=== PATIENT | female | born 1950 | race Caucasian/White ===

== ENCOUNTER 2019-05-08 16:53 | Inpatient (IN) | payer MEDICARE, OTHER, SELFPAY ==
[2019-05-08] VITALS (8 sets, daily range): BP systolic 109–137; BP diastolic 48–68; PULSE 59–77; RESP 16; TEMP 36.3–37.2; O2SAT 95–98; BMI 27.8; BMI 28.8; BMI 28.0
--- NOTE | 2019-05-08 17:21 | CT_ITS ---
STUDY: CT ABDOMEN AND PELVIS WITH CONTRAST REASON FOR EXAM: Female, 68 years old. Vomiting with abdominal pain x6 days RADIATION DOSAGE (If Supplied By Facility): CTDIvol = ( 16.42 ) mGy, DLP = ( 1736.87 ) mGycm TECHNIQUE: Transaxial images were obtained from the dome of the diaphragm to the symphysis pubis with oral contrast. IV/Oral Isovue 300 100 was administered. Sagittal and coronal images were reconstructed. Individualized dose optimization techniques were used for this CT. COMPARISON: None. FINDINGS: The visualized lung bases are unremarkable. The visualized portions of the heart are within normal limits. Normal liver. There are surgical clips in the gallbladder fossa consistent with a prior cholecystectomy. Normal spleen. There is diffuse atrophy of the pancreas. Normal bilateral adrenal glands. Right-sided nephrolithiasis is noted with a stone in the central collecting system measuring 1.4 x 0.7 cm. There is mild right hydronephrosis. Severely atrophied left kidney with numerous large stones. There is a stone in the left central collecting system measuring 1.8 x 1.2 cm. Left hydronephrosis is noted. On the delayed sequence however, there appears to be appropriate contrast within the right ureter suggesting incomplete obstruction Normal visualized stomach. Normal small intestine. Normal colon. The appendix is visualized and appears normal. There is diffuse atherosclerotic calcification of the abdominal aorta, without a demonstrated aneurysm. Normal inferior vena cava. Normal retroperitoneum. Normal urinary bladder. Calcified uterine fibroid Normal abdominal wall. There are diffuse degenerative changes of the visualized lumbar spine. CT/Abdomen/Pelvis WITH Contrast IMPRESSION: Bilateral nephrolithiasis with stones in the central collecting systems and hydronephrosis; left greater than right. Severe atrophy of the left renal parenchyma. Electronically Signed: Jimbo William DO at 19:34 EDT Tel , Service support ,
--- NOTE | 2019-05-08 17:21 | EKG12_ITS ---
Test Reason : N/V Blood Pressure : / mmHG Vent. Rate : 067 BPM Atrial Rate : 067 BPM P-R Int : 174 ms QRS Dur : 086 ms QT Int : 412 ms P-R-T Axes : 057 039 037 degrees QTc Int : 435 ms Normal sinus rhythm with sinus arrhythmia Normal ECG Confirmed by TOVA VELASQUEZ, DEON ([id number]), editor continuity and script HAKEEM HEATON ([id number]) on 05/12/2019 3:30:55 PM Referred By: DEDE Confirmed By:DEON BERNARDO MD
[2019-05-08] MEDS: 0.9% Normal Saline 1,000 ML 125 ML IV (17:35)
[2019-05-08] MEDS: Ondansetron 4 MG/2 ML Vial IV (17:35)
--- NOTE | 2019-05-08 17:48 | ED.DCSUM_ITS ---
- ER Visit Summary Date of Service: 05/08/19 Chief Complaint: [Nausea and vomiting] History of Present Illness: The patient is a 68 F [presents to the emergency department with nausea and vomiting that started 6 days ago. Patient states that every time she tries to eat she throws up. Patient cannot keep anything down. Patient has had a visit to the emergency department for some of which was 4 days ago and she was seen at [facility] where she was given fluids and had a CBC per family. Patient was discharged home with antiemetics but continued to throw up. Several days ago she had a visit with her primary care physician's nurse practitioner and no further interventions were performed other than starting patient on Pepcid. Patient denies any abdominal pain. She denies any fever. She denies any diarrhea. She denies any blood in her stool or black tarry stool. She denies vomiting blood. Patient does have history of diabetes, hypertension, high cholesterol, and dementia. A lot of the history comes from the patient's sister and niece.] She has had prior cholecystectomy. Physical Examination: [HEENT-PERRLA, EOMI. Cranial nerves II through XII grossly intact. TMs clear. Mucous membranes moist. No adenopathy. Cardiovascular-regular rate and rhythm without murmur or ectopy Lungs-clear to auscultation, chest wall stable without crepitus or subcu emphysema Abdomen-normoactive bowel sounds, soft area patient has tenderness in the epigastric region with some guarding. There is no rebound, rigidity, or perineal signs. Extremities-intact ?4, normal range of motion, normal pulses, atraumatic] Test Results: [CBC with differential obtained showed a white count of 11.6, hemoglobin 16, hematocrit 48, placed 311. History showed a sodium 136, potassium 3.5, chloride 102. Glucose is 145, 122, creatinine 1.49. Urinalysis showed 100 leukocyte esterase and 5-10 WBCs as well as 0-5 RBCs. Troponin is less than 0.015. EKG shows sinus rhythm with a ventricular rate of 67 bpm with no acute ST segment changes. CT scan of the abdomen pelvis obtained with IV and p.o. contrast was read as right-sided nephrolithiasis noted with a stone in the central collecting system measuring 1.4 x 0.7 cm. There is also mild hydro-nephrosis. Patient had a severely atrophied left kidney with numerous large stones. There is a stone in the left central collecting system measuring 1.8 x 1.2 cm. Left hydronephrosis also noted.] Emergency Department Course and Treatment: [Patient was given Zofran for nausea. Patient was given normal saline.] Case was discussed with urologist who will take patient to the OR for placement of stents in the ureters. She will be discussed with hospitalist for admission. Treatment Plan: [Admit for surgical intervention.] Disposition: [Admit] Impression: [Urolithiasis Vomiting Dehydration] This note was generated with English TV dictation software. It may contain incorrect words, spelling, and punctuation that were not noted in review of the chart prior to signing ED Disposition - Plan for ED Patient: Referrals: Sofia Pitts DO [Primary Care Provider] -
[2019-05-08 18:00] LABS: Absolute Lymphocyte Count 4.04 X10^3/uL (0.83-4.51); Absolute Neutrophil Count 6.4 X10^3/uL (2.0-7.7); Basophil# 0.06 X10^3/uL; Basophil% 0.5 % (0-1); Eosinophil# 0.12 X10^3/uL; Hematocrit 48.1 % (37-47); Hemoglobin 16.1 g/dL (12.0-15.0); Lymphocyte # 4.04 X10^3/ul (4.0); Lymphocyte % 34.9 % (19-41); Mean Corp Hgb Conc 33.5 g/dL (32-36); Mean Corpuscular Volume 86.5 fL (81-99); Mean Platelet Vol. 9.9 fl (6.2-12.0); Monocyte% 7.8 % (0-10); NRBC Flagged by Analyzer 0 % (0-5); Neutrophil # 6.42 X10^3/uL (2.7-7.7); Neutrophil % 55.4 % (47-70); POSITIVE MORPHOLOGY YES; Platelet Count 311 K/mm3 (150-450); RBC Distribution Width CV 13.2 % (11.6-14.6); Red Blood Count 5.56 M/mm3 (4.2-5.4); White Blood Count 11.6 K/mm3 (4.4-11.0)
[2019-05-08 18:05] LABS: Differential Indicated SCAN CRITERIA MET
[2019-05-08 18:06] LABS: ALB/GLOB Ratio 1.1 RATIO (0.9-2.4); AST(SGOT) 16 U/L (15-37); Alanine Aminotransfer ALT/SGPT 25 U/L (13-56); Alkaline Phosphatase 81 U/L (45-117); Anion Gap 4 (5-15); BUN 22 mg/dL (7-18); BUN/Creat Ratio 14.8 RATIO (10-20); Calcium,Total 10.1 mg/dL (8.5-10.1); Chloride 102 mmol/L (98-107); Creatinine, Serum 1.49 mg/dL (0.55-1.02); EST Glomerular Filtration Rate 37 mL/min (>60); Est Glom Filt Rate - Afr Amer 45 mL/min (>60); Estimated Creatinine Clearance 31.64 ml/min; Globulin 3.5 g/dL (2.2-4.2); Glucose 145 mg/dL (74-106); Lipase 90 U/L (73-393); Potassium 3.5 mmol/L (3.5-5.1); Protein, Total 7.5 g/dL (6.4-8.2); Sodium Level 136 mmol/L (136-145)
[2019-05-08 18:26] LABS: Lactic Acid 1.3 mmol/L (0.4-2.0)
[2019-05-08 18:39] LABS: Bacteria 0 SEEN /hpf (None Seen); Mucous, Urine 0 SEEN /hpf (<or=2+)
[2019-05-08 18:41] LABS: Color, Urine Yellow (Yellow); Glucose, Dipstick Normal (Normal); Ketone-Dipstick Negative (Negative); Leukocyte Esterase-Dipstick 100 /ul (Negative); Nitrite-Dipstick Negative (Negative); Occult Blood-Urine 10 /ul (Negative); Protein-Dipstick 15 mg/dl (Negative); Specific Gravity, Urine 1.005 (1.002-1.030); Urine Bilirubin Dipstick Negative (Negative); Urine Clarity Sl. Cloudy (Clear); Urine Urobilinogen Normal (Normal)
[2019-05-08 18:42] LABS: Differential Comment SCANNED
[2019-05-08 18:43] LABS: Platelet Estimate ADEQUATE (ADEQ); Reactive Lymphocyte RARE; Red Cell Morphology NORM C+C NORMAL (NORM C&C)
[2019-05-08 18:47] LABS: Red Blood Cells-Urine 0-5 SEEN /hpf (0-5); Squamous Epithelial Cells - UA 0-5 SEEN /hpf (5-10); White Blood Cells 5-10 SEEN /hpf (0-5)
[2019-05-08 18:48] LABS: Amorphous Sediment 1+ PHOS; Renal Epithelial Cells 0-5 SEEN /hpf (0-5)
--- NOTE | 2019-05-08 20:22 | PCM.HP.STD ---
Problem List (1) Alzheimer disease Status: Acute (2) HTN (hypertension) Status: Chronic (3) HLD (hyperlipidemia) Status: Acute (4) Depression Status: Acute (5) GERD (gastroesophageal reflux disease) Status: Acute (6) Diabetes Status: Acute History of Present Illness Date of Admission: 05/08/19 Chief Complaint: Abdominal pain with nausea and vomiting The patient is a 68 year old F with PMH as below who presents to the hospital with abdominal pain and nausea and vomiting. She states that this started about 12 days ago, and it has progressively gotten worse. She had been to another hospital about 4 days ago where they did lab work and gave her fluids and sent her home. Today on this admission her creatinine was elevated to 1.45, though we do not know what her baseline is since this is her first time at this hospital. Also she had a UA that showed amorphous sediment in the 100 leukocyte esterase. She had a CT of her abdomen pelvis which demonstrated bilateral nephrolithiasis with left greater than right hydronephrosis. She was able to answer most questions appropriately, however family noted that she is in the early stages of Alzheimer's and can sometimes be very slow in her responses to questions especially when she is stressed. Past Medical History Past Medical History (Chronic Problems): Chronic Problems HTN (hypertension) (Chronic) Allergies amoxicillin [From Augmentin] Adverse Reaction (Verified 05/08/19 16:58) Hives cephalexin [From Keflex] Adverse Reaction (Verified 05/08/19 16:58) Vomiting clavulanic acid [From Augmentin] Adverse Reaction (Verified 05/08/19 16:58) Hives Penicillins Adverse Reaction (Verified 05/08/19 16:58) Vomiting shellfish derived Adverse Reaction (Verified 05/08/19 16:58) Vomiting Home Medications: Ambulatory Orders Medication Instructions Recorded Clonidine HCl [Catapres] 0.1 mg PO TID 05/08/19 Donepezil HCl 5 mg PO QHS 05/08/19 Donepezil HCl 10 mg PO QHS 05/08/19 Eplerenone 50 mg PO DAILY 05/08/19 Famotidine 20 mg PO DAILY 05/08/19 Fenofibrate [Tricor] 145 mg PO DAILY 05/08/19 Hydrochlorothiazide 50 mg PO DAILY 05/08/19 Losartan Potassium 100 mg PO DAILY 05/08/19 Metformin HCl 500 mg PO BID 05/08/19 Multivit with Iron,Minerals 1 tab PO DAILY 05/08/19 [Complete Senior] Ondansetron HCl [Zofran] 4 mg PO Q8H PRN 05/08/19 Sertraline HCl [Zoloft] 25 mg PO DAILY 05/08/19 proMETHazine tablet [Phenergan 12.5 mg PO Q6H PRN PRN 05/08/19 tablet] Surgical History: cholecystectomy Smoking Status: Never smoker Alcohol: None Drugs: None - *Family History Maternal History Items: Diabetes, Heart Disease Paternal History Items: Diabetes, Heart Disease Review of Systems Constitutional: Denies: Chills, Fever, Weight Change HEENT: Denies: Head Aches, Sinus Congestion, Sinus Drainage Cardiovascular: Denies: Chest Pain, Palpitations Respiratory: Denies: Cough, Shortness of breath at rest, Sputum production Gastrointestinal: Reports: Abdominal Pain, Nausea, Vomiting Genitourinary: Denies: Dysuria Musculoskeletal: Denies: Joint Pain, Joint Tenderness Skin: Denies: Rash, Wounds Neurological: Denies: Numbness, Tingling, Focal weakness Psychiatric: Denies: Anxiety, Depression Hematologic/ Lymphatic: Denies: Easy Bruising, Easy Bleeding VTE Information - Inpt Only VTE Present on Admission: No Patient Problems: Active and Suspected Problems Alzheimer disease (Acute) HLD (hyperlipidemia) (Acute) Depression (Acute) GERD (gastroesophageal reflux disease) (Acute) Diabetes (Acute) - Physical Exam General: Alert, Oriented x3, Cooperative, No apparent distress HEENT: Atraumatic, PERRLA, EOMI, Normocephalic Oral: Dry Mucosa Neck: Supple, No JVD Lungs: Clear to auscultation, Normal air movement, No rhonchi, No wheeze, No rales Cardiovascular: Regular rate, Regular Rhythm, Normal S1, Normal S2, No murmurs Abdomen: Soft, Non Tender, Non-Distended, No Hepato-splenomegaly, - - No CVA tenderness Extremities: No edema, Capillary Refill Less than 3 Seconds Skin: No rashes, No breakdown Neurological: Neuro grossly intact, Sensory exam intact to light touch and pain Psych/Mental Status: Normal Affect, Appropriate Vital Signs Temp Pulse Resp BP Pulse Ox 98.5 F 77 16 114/68 95 05/08/19 16:55 05/08/19 16:55 05/08/19 16:55 05/08/19 16:55 05/08/19 16:55 Oxygen Delivery Method Room Air Weight: 162 lb Body Mass Index (BMI) 27.8 Laboratory Tests Past 24 Hrs 05/08/19 05/08/19 05/08/19 17:38 17:38 17:52 WBC 11.6 H RBC 5.56 H Hgb 16.1 H Hct 48.1 H MCV 86.5 MCH 29.0 MCHC 33.5 RDW Std Deviation 41.0 RDW Coeff of Naa 13.2 Plt Count 311 MPV 9.9 Immature Gran % (Auto) 0.400 Neut % (Auto) 55.4 Lymph % (Auto) 34.9 [place] % (Auto) 7.8 Eos % (Auto) 1.0 Baso % (Auto) 0.5 Absolute Neuts (auto) 6.4 Absolute Lymphs (auto) 4.04 Nucleated RBC % 0 Differential Comment SCANNED Reactive Lymphocytes RARE Platelet Estimate ADEQUATE RBC Morphology NORM C+C Sodium 136 Potassium 3.5 Chloride 102 Carbon Dioxide 30.0 Anion Gap 4 L BUN 22 H Creatinine 1.49 H Estim Creat Clear Calc 31.64 Est GFR (MDRD) Af Amer 45 L Est GFR (MDRD) Non-Af 37 L BUN/Creatinine Ratio 14.8 Glucose 145 H Lactic Acid 1.3 Calcium 10.1 Total Bilirubin 0.80 AST 16 ALT 25 Alkaline Phosphatase 81 Troponin I < 0.015 Total Protein 7.5 Albumin 4.0 Globulin 3.5 Albumin/Globulin Ratio 1.1 Lipase 90 Urine Color Urine Clarity Urine pH Ur Specific [place] Urine Protein Urine Glucose (UA) Urine Ketones Urine Occult Blood Urine Nitrite Urine Bilirubin Urine Urobilinogen Ur Leukocyte Esterase Urine RBC Urine WBC Ur Squamous Epith Cells Ur Renal Epithelial Cell Amorphous Sediment Urine Bacteria Urine Mucus 05/08/19 18:30 WBC RBC Hgb Hct MCV MCH MCHC RDW Std Deviation RDW Coeff of Naa Plt Count MPV Immature Gran % (Auto) Neut % (Auto) Lymph % (Auto) [place] % (Auto) Eos % (Auto) Baso % (Auto) Absolute Neuts (auto) Absolute Lymphs (auto) Nucleated RBC % Differential Comment Reactive Lymphocytes Platelet Estimate RBC Morphology Sodium Potassium Chloride Carbon Dioxide Anion Gap BUN Creatinine Estim Creat Clear Calc Est GFR (MDRD) Af Amer Est GFR (MDRD) Non-Af BUN/Creatinine Ratio Glucose Lactic Acid Calcium Total Bilirubin AST ALT Alkaline Phosphatase Troponin I Total Protein Albumin Globulin Albumin/Globulin Ratio Lipase Urine Color Yellow Urine Clarity Sl. Cloudy Urine pH 7.0 Ur Specific [place] 1.005 Urine Protein 15 H Urine Glucose (UA) Normal Urine Ketones Negative Urine Occult Blood 10 H Urine Nitrite Negative Urine Bilirubin Negative Urine Urobilinogen Normal Ur Leukocyte Esterase 100 H Urine RBC 0-5 SEEN Urine WBC 5-10 SEEN Ur Squamous Epith Cells 0-5 SEEN Ur Renal Epithelial Cell 0-5 SEEN Amorphous Sediment 1+ PHOS Urine Bacteria 0 SEEN Urine Mucus 0 SEEN Assessment/Plan All Active Problems Alzheimer disease (Acute) HLD (hyperlipidemia) (Acute) Depression (Acute) GERD (gastroesophageal reflux disease) (Acute) Diabetes (Acute) 1. Bilateral nephrolithiasis with hydronephrosis and an elevated creatinine -Unsure what her baseline creatinine is, however on admission she is 1.49 -We will continue you with gentle IV hydration -Consult to urology, she was taken to the OR this evening for bilateral stent placement, a right ureteral stent was able to be placed however she has a left atrophic kidney and a stent was unable to be placed into the left ureter and the stone was left alone. 2. DM 2 -We will hold her metformin and start a sliding scale insulin -Accu-Cheks AC at bedtime 3. Alzheimer's dementia and depression -Continue with her Aricept dosing -Depression is stable -continue with Zoloft 4. HTN/HLD -Blood pressures appear to be stable -Continue with her home blood pressure medications and her fenofibrate 5. GERD -Stable -Continue with Pepcid DVT: Lovenox Code Visit Inpatient E&M: 92402 Init Hosp L3
--- NOTE | 2019-05-08 20:29 | CON.PCM_ITS ---
Reason for Consult Date of Consultation: 05/08/19 Reason for Consultation: Bilateral kidney stones bilateral ureteral obstruction nausea vomiting History of Present Illness: The patient is a 68 year old female who presented to the emergency room for a second time she was in outside emergency room initially for 4 days of persistent nausea vomiting lab work today demonstrated elevated creatinine CAT scan was done demonstrated atrophic kidney on one side obstructing stone and a another stone blocking the other kidney with bilateral obstruction elevated creatinine she is failed conservative management persistent nausea and vomiting. She is can be admitted for the nausea vomiting, plan to taken to surgery this evening for cystoscopy and bilateral stents to alleviate the obstruction. Past Medical History Allergies amoxicillin [From Augmentin] Adverse Reaction (Verified 05/08/19 16:58) Hives cephalexin [From Keflex] Adverse Reaction (Verified 05/08/19 16:58) Vomiting clavulanic acid [From Augmentin] Adverse Reaction (Verified 05/08/19 16:58) Hives Penicillins Adverse Reaction (Verified 05/08/19 16:58) Vomiting shellfish derived Adverse Reaction (Verified 05/08/19 16:58) Vomiting Home Medications: Ambulatory Orders Medication Instructions Recorded Clonidine HCl [Catapres] 0.1 mg PO TID 05/08/19 Donepezil HCl 5 mg PO QHS 05/08/19 Donepezil HCl 10 mg PO QHS 05/08/19 Eplerenone 50 mg PO DAILY 05/08/19 Famotidine 20 mg PO DAILY 05/08/19 Fenofibrate [Tricor] 145 mg PO DAILY 05/08/19 Hydrochlorothiazide 50 mg PO DAILY 05/08/19 Losartan Potassium 100 mg PO DAILY 05/08/19 Metformin HCl 500 mg PO BID 05/08/19 Multivit with Iron,Minerals 1 tab PO DAILY 05/08/19 [Complete Senior] Ondansetron HCl [Zofran] 4 mg PO Q8H PRN 05/08/19 Sertraline HCl [Zoloft] 25 mg PO DAILY 05/08/19 proMETHazine tablet [Phenergan 12.5 mg PO Q6H PRN PRN 05/08/19 tablet] 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: No pertinent HAND BOOKBINDER history Lives: With Family Smoking Status: Never smoker Tobacco Use: Non-smoker Alcohol: None Drugs: None Review of Systems Constitutional: Reports: Anorexia Gastrointestinal: Reports: Nausea, Vomiting Genitourinary: Denies: Dysuria Musculoskeletal: Denies: Joint Pain, Joint Tenderness Skin: Denies: Rash, Wounds Neurological: Denies: Numbness, Tingling, Focal weakness Psychiatric: Denies: Anxiety, Depression, Homicidal Ideations, Suicidal Ideations Hematologic/ Lymphatic: Denies: Easy Bruising, Easy Bleeding Physical Exam - Physical Exam Vital Signs Temp 98.5 F 05/08/19 16:55 Pulse 77 05/08/19 16:55 Resp 16 05/08/19 16:55 BP 114/68 05/08/19 16:55 Pulse Ox 95 05/08/19 16:55 Intake & Output 05/06/19 05/07/19 05/08/19 23:59 23:59 23:59 Weight: 73.482 kg General: Alert HEENT: Atraumatic Oral: Moist Mucosa Neck: Supple Lungs: Normal air movement Cardiovascular: Regular rate Abdomen: Soft Rectal: Exam deferred Groin: No hernia Extremities: No clubbing, No cyanosis, No edema Laboratory Tests Past 24 Hrs 05/08/19 05/08/19 05/08/19 17:38 17:38 17:52 WBC 11.6 H RBC 5.56 H Hgb 16.1 H Hct 48.1 H MCV 86.5 MCH 29.0 MCHC 33.5 RDW Std Deviation 41.0 RDW Coeff of Naa 13.2 Plt Count 311 MPV 9.9 Immature Gran % (Auto) 0.400 Neut % (Auto) 55.4 Lymph % (Auto) 34.9 [place] % (Auto) 7.8 Eos % (Auto) 1.0 Baso % (Auto) 0.5 Absolute Neuts (auto) 6.4 Absolute Lymphs (auto) 4.04 Nucleated RBC % 0 Differential Comment SCANNED Reactive Lymphocytes RARE Platelet Estimate ADEQUATE RBC Morphology NORM C+C Sodium 136 Potassium 3.5 Chloride 102 Carbon Dioxide 30.0 Anion Gap 4 L BUN 22 H Creatinine 1.49 H Estim Creat Clear Calc 31.64 Est GFR (MDRD) Af Amer 45 L Est GFR (MDRD) Non-Af 37 L BUN/Creatinine Ratio 14.8 Glucose 145 H Lactic Acid 1.3 Calcium 10.1 Total Bilirubin 0.80 AST 16 ALT 25 Alkaline Phosphatase 81 Troponin I < 0.015 Total Protein 7.5 Albumin 4.0 Globulin 3.5 Albumin/Globulin Ratio 1.1 Lipase 90 Urine Color Urine Clarity Urine pH Ur Specific [place] Urine Protein Urine Glucose (UA) Urine Ketones Urine Occult Blood Urine Nitrite Urine Bilirubin Urine Urobilinogen Ur Leukocyte Esterase Urine RBC Urine WBC Ur Squamous Epith Cells Ur Renal Epithelial Cell Amorphous Sediment Urine Bacteria Urine Mucus 05/08/19 18:30 WBC RBC Hgb Hct MCV MCH MCHC RDW Std Deviation RDW Coeff of Naa Plt Count MPV Immature Gran % (Auto) Neut % (Auto) Lymph % (Auto) [place] % (Auto) Eos % (Auto) Baso % (Auto) Absolute Neuts (auto) Absolute Lymphs (auto) Nucleated RBC % Differential Comment Reactive Lymphocytes Platelet Estimate RBC Morphology Sodium Potassium Chloride Carbon Dioxide Anion Gap BUN Creatinine Estim Creat Clear Calc Est GFR (MDRD) Af Amer Est GFR (MDRD) Non-Af BUN/Creatinine Ratio Glucose Lactic Acid Calcium Total Bilirubin AST ALT Alkaline Phosphatase Troponin I Total Protein Albumin Globulin Albumin/Globulin Ratio Lipase Urine Color Yellow Urine Clarity Sl. Cloudy Urine pH 7.0 Ur Specific [place] 1.005 Urine Protein 15 H Urine Glucose (UA) Normal Urine Ketones Negative Urine Occult Blood 10 H Urine Nitrite Negative Urine Bilirubin Negative Urine Urobilinogen Normal Ur Leukocyte Esterase 100 H Urine RBC 0-5 SEEN Urine WBC 5-10 SEEN Ur Squamous Epith Cells 0-5 SEEN Ur Renal Epithelial Cell 0-5 SEEN Amorphous Sediment 1+ PHOS Urine Bacteria 0 SEEN Urine Mucus 0 SEEN Assessment/Plan 68-year-old female with bilateral ureteral obstruction she is n.p.o. for surgery plan to take her immediately for cystoscopy left retrograde pyelogram and stent placement and right retrograde pyelogram and stent placement she will then be admitted to the hospital
[2019-05-08] MEDS: Ciprofloxacin 200 MG/100 ML BAG 100 MG IV (20:52)
[2019-05-08] MEDS: Lidocaine Jelly 2% 20 ML Syringe (URO-JET) 20 APPLIC (21:18)
--- NOTE | 2019-05-08 21:29 | PCM.OPRPT ---
Report of Operation Date of Procedure: 05/08/19 Pre-Operative Diagnosis: Bilateral ureteral obstruction from large renal calculi, left atrophic kidney poorly functioning. Normal right kidney with obstruction Post-Operative Diagnosis: The same atrophic chronically obstructed left kidney, right kidney with obstruction renal calculi Surgery/Procedure Performed:: Cystoscopy, right retrograde pyelogram, interpretation fluoroscopic images, and right stent placement, left retrograde pyelogram attempted stent placement no stent placed on left side. Description of Surgical Findings:: 68-year-old female with dementia presents to the hospital with 4 days of nausea vomiting not feeling well CAT scan was done and demonstrated a normal kidney on the right side with obstruction from the stone and hydronephrosis. 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 Presented with obstruction and will take her to surgery today for stent placement in an emergent fashion from the ER 68-year-old female taken back to the operating room at the smooth induction of MAC local by Dr. Palencia from anesthesia she was placed in dorsolithotomy position. The urethra and vaginal area were prepped and draped in usual sterile fashion, went into the bladder with a 21 [place] rigid cystourethroscope identified the left and right ureter orifice and the trigone I think cannulated the right ureteral orifice with a Glidewire performed a retrograde pyelogram see contrast up in the kidney the stone appeared to be radiolucent, I then advanced a wire past the stone up into the kidney and then over the wire I advanced a stent it was 6 6 [place] by 26 cm stent once in good position pulled the stent the stent coiled in the kidney bladder good position and was draining the right kidney well. I then went to the left side cannulated the left ureteral orifice advanced a wire up in the left side contrast was then injected up in the left side no contrast to go past the stone there was a large stone at the UPJ junction junction causing complete obstruction tried multiple times to get the wire past the stone but was not able to get the wire past the stone. Therefore I aborted and did not place a stent to the left side. Left kidney is atrophic and poorly functioning will leave the stones alone in the left side and not treat him and will treat her stones in the right kidney that causing obstruction of the healthy kidney. Anesthesia was reversed she is taken back to PACU in good condition she is can be admitted to the hospital. Type of Anesthesia:: Local MAC Drains: stent on right - Admit VTE Documentation VTE Present on Admission: No VTE Mechan Device Prophylaxis: SCD's
[2019-05-08 23:00] LABS: Bedside Glucose 111 mg/dL (70-110)
[2019-05-08] MEDS: 0.9% Normal Saline 1,000 ML 100 ML IV (23:05)
--- NOTE | 2019-05-09 00:15 | NURSING ---
Up to bathroom with SBA, urine pink, no stones noted
[2019-05-09] MEDS: Ondansetron 4 MG/2 ML Vial IV (03:07)
[2019-05-09] MEDS: Ketorolac 15 MG/ML Vial IV (03:37)
[2019-05-09 05:15] VITALS: BP 139/56; PULSE 69; RESP 18; TEMP 36.7; O2SAT 95
[2019-05-09] MEDS: cloNIDine HCl 0.1 MG Tablet PO ×3 (06:05→22:18)
[2019-05-09 06:41] LABS: Absolute Lymphocyte Count 3.05 X10^3/uL (0.83-4.51); Absolute Neutrophil Count 7.3 X10^3/uL (2.0-7.7); Basophil# 0.05 X10^3/uL; Basophil% 0.4 % (0-1); Eosinophil# 0.17 X10^3/uL; Eosinophils% 1.5 % (0-5); Hematocrit 43.2 % (37-47); Hemoglobin 14.7 g/dL (12.0-15.0); Lymphocyte # 3.05 X10^3/ul (4.0); Lymphocyte % 26.2 % (19-41); Mean Corpuscular Hgb 29.3 pg (27.0-32.0); Mean Corpuscular Volume 86.1 fL (81-99); Mean Platelet Vol. 9.6 fl (6.2-12.0); Monocyte# 0.98 X10^3/uL; Monocyte% 8.4 % (0-10); NRBC Flagged by Analyzer 0 % (0-5); Neutrophil # 7.34 X10^3/uL (2.7-7.7); Neutrophil % 63.2 % (47-70); Platelet Count 254 K/mm3 (150-450); RBC Distribution Width CV 13.2 % (11.6-14.6); RBC Distribution Width SD 40.8 fl (35.1-43.9); Red Blood Count 5.02 M/mm3 (4.2-5.4); White Blood Count 11.6 K/mm3 (4.4-11.0)
[2019-05-09 06:55] LABS: Anion Gap 6 (5-15); BUN 19 mg/dL (7-18); BUN/Creat Ratio 14.5 RATIO (10-20); Calcium,Total 9.2 mg/dL (8.5-10.1); Chloride 106 mmol/L (98-107); Creatinine, Serum 1.31 mg/dL (0.55-1.02); EST Glomerular Filtration Rate 43 mL/min (>60); Est Glom Filt Rate - Afr Amer 52 mL/min (>60); Estimated Creatinine Clearance 35.99 ml/min; Glucose 113 mg/dL (74-106); Potassium 3.1 mmol/L (3.5-5.1); Sodium Level 139 mmol/L (136-145)
[2019-05-09 06:56] LABS: Bedside Glucose 120 mg/dL (70-110)
[2019-05-09 09:19] VITALS: BP 145/61; PULSE 62; RESP 14; TEMP 36.5; O2SAT 96
[2019-05-09] MEDS: 0.9% Normal Saline 1,000 ML 100 ML IV ×2 (10:14→20:15)
[2019-05-09] MEDS: Ciprofloxacin 500 MG Tablet PO ×2 (10:37→22:18)
[2019-05-09] MEDS: Losartan Potassium 100 MG Tablet PO (10:38)
[2019-05-09] MEDS: hydroCHLOROthiazide 25 MG Tablet 50 MG PO (10:39)
[2019-05-09] MEDS: Enoxaparin 40 MG/0.4 ML Syringe SC (10:40)
[2019-05-09] MEDS: Famotidine 20 MG Tablet PO (10:41)
[2019-05-09] MEDS: Fenofibrate 48 MG Tablet PO (10:42)
[2019-05-09] MEDS: Sertraline 50 MG Tablet 25 MG PO (10:43)
[2019-05-09 11:46] LABS: Bedside Glucose 103 mg/dL (70-110)
[2019-05-09 13:21] VITALS: BP 150/50; PULSE 65; RESP 18; TEMP 36.6; O2SAT 98
[2019-05-09] MEDS: Eplerenone 25 MG Tablet 50 MG PO (13:25)
--- NOTE | 2019-05-09 14:00 | CASEMGMT ---
RN CM Face to Face with patient for initial transition planning/care coordination assessment. RN CM introduced self and role at [facility]. Patient lying in bed, alert and oriented, sister at bedside. Patient willing to participate in assessment and is able to answer most questions appropriately, has early Alzheimer's and is dependent on sister to answer some questions. Care providers, pharmacy, and demographics verified. Patient wishes to discharge home, denies need for home health at this time. Patient states she has no further needs or concerns at this time. CM to follow for discharge planning needs that may arise. PCP: Gisselle Specialists: Jacob; Alzheimer specialist Preferred [facility]acy: [facility] Insurance: [facility] Prescription Benefit: yes Living Will/HPOA: none, would like to complete while here, DEREK Reis updated LNOK: sister, niece Living Arrangements: Patient lives with sister and niece in 2 story home with bed and bath on first floor. Patient independent at home. Transportation: sister DME/HHC: Patient states she has shower chair at home. Family ordering rollator for patient. Disposition Plan: Patient to discharge home with family support and follow-up plans in place. Yee REGALADO, RN, CM
--- NOTE | 2019-05-09 14:36 | CASEMGMT ---
Social Work Note RN ANJANA Sim updated this worker that pt would like to complete advanced directives. SW met with pt, pt's sister Marcie and pt's niece present in room. Pt gave this worker permission to speak to her in front of her guest and complete advanced directives in front of her guest. Pt completed advanced directives. Copy of advanced directives on pt's chart and original given to pt. Pt's niece Charito requesting 3 copies. SW provided Charito with three copies. Yee Reis EDGERMAN, ORNAMENTAL METAL FABRICATOR APPRENTICE
--- NOTE | 2019-05-09 15:22 | PCM.PN.BLA ---
Progress Note 68 yo female with essentially solitary right kidney s/p stent on right urine bloody will stop all blood thinners left kidney with no function scds
[2019-05-09 17:41] VITALS: BP 156/68; PULSE 66; RESP 18; TEMP 36.1; O2SAT 96
[2019-05-09] MEDS: Insulin Lispro 100 UNIT/ML INSULN.PEN SC ×2 (17:49→22:20)
[2019-05-09 17:51] LABS: Bedside Glucose 202 mg/dL (70-110)
--- NOTE | 2019-05-09 18:11 | PN_ITS ---
Subjective: Patient was seen and examined today, she is having gross hematuria today, I talked briefly with urology concerning it, urology stated that the hematuria is probably coming from the stent placement and recommended to continue observation. I placed the patient on oral antibiotics this morning due to her instrumentation and risk of urinary tract infection. - Physical Exam General: Alert, Cooperative, No apparent distress, Well developed HEENT: Atraumatic, PERRLA, EOMI, Normocephalic Oral: Moist Mucosa Neck: Supple, Trachea Midline, Thyroid Normal Size and Texture Lungs: Clear to auscultation, Normal air movement, No rhonchi, No wheeze Cardiovascular: Regular rate, Regular Rhythm, Normal S1, Normal S2, No murmurs Abdomen: Bowel Sounds Present, Soft, Non Tender, Non-Distended Extremities: No clubbing, No cyanosis, No edema, Capillary Refill Less than 3 Seconds Skin: No rashes, No breakdown Musculoskeletal: No Tenderness to Palpation of Joints or Extremities Neurological: Cranial nerves II-XII grossly intact, Neuro grossly intact, Sensory exam intact to light touch and pain Psych/Mental Status: Normal Affect, Appropriate Vital Signs Temp Pulse Resp BP Pulse Ox 97 F L 66 18 156/68 H 96 05/09/19 17:41 05/09/19 17:41 05/09/19 17:41 05/09/19 17:41 05/09/19 17:41 Oxygen Delivery Method Room Air Weight: 74.1 kg Body Mass Index (BMI) 28.0 Intake and Output for Last 24 Hours 05/07/19 05/08/19 05/09/19 23:59 23:59 23:59 Intake Total 787.5 / 787.5 2150 / 2150 Output Total 1400 / 1400 Balance 787.5 / 587.5 750 / 750 Laboratory Tests Past 24 Hrs 05/08/19 05/08/19 05/08/19 17:38 17:52 18:30 WBC RBC Hgb Hct MCV MCH MCHC RDW Std Deviation RDW Coeff of Naa Plt Count MPV Immature Gran % (Auto) Neut % (Auto) Lymph % (Auto) [place] % (Auto) Eos % (Auto) Baso % (Auto) Absolute Neuts (auto) Absolute Lymphs (auto) Nucleated RBC % Differential Comment SCANNED Reactive Lymphocytes RARE Platelet Estimate ADEQUATE RBC Morphology NORM C+C Sodium Potassium Chloride Carbon Dioxide Anion Gap BUN Creatinine Estim Creat Clear Calc Est GFR (MDRD) Af Amer Est GFR (MDRD) Non-Af BUN/Creatinine Ratio Glucose Lactic Acid 1.3 Calcium Urine Color Yellow Urine Clarity Sl. Cloudy Urine pH 7.0 Ur Specific [place] 1.005 Urine Protein 15 H Urine Glucose (UA) Normal Urine Ketones Negative Urine Occult Blood 10 H Urine Nitrite Negative Urine Bilirubin Negative Urine Urobilinogen Normal Ur Leukocyte Esterase 100 H Urine RBC 0-5 SEEN Urine WBC 5-10 SEEN Ur Squamous Epith Cells 0-5 SEEN Ur Renal Epithelial Cell 0-5 SEEN Amorphous Sediment 1+ PHOS Urine Bacteria 0 SEEN Urine Mucus 0 SEEN 05/09/19 05/09/19 06:28 06:28 WBC 11.6 H RBC 5.02 Hgb 14.7 Hct 43.2 MCV 86.1 MCH 29.3 MCHC 34.0 RDW Std Deviation 40.8 RDW Coeff of Naa 13.2 Plt Count 254 MPV 9.6 Immature Gran % (Auto) 0.300 Neut % (Auto) 63.2 Lymph % (Auto) 26.2 [place] % (Auto) 8.4 Eos % (Auto) 1.5 Baso % (Auto) 0.4 Absolute Neuts (auto) 7.3 Absolute Lymphs (auto) 3.05 Nucleated RBC % 0 Differential Comment Reactive Lymphocytes Platelet Estimate RBC Morphology Sodium 139 Potassium 3.1 L Chloride 106 Carbon Dioxide 27.0 Anion Gap 6 BUN 19 H Creatinine 1.31 H Estim Creat Clear Calc 35.99 Est GFR (MDRD) Af Amer 52 L Est GFR (MDRD) Non-Af 43 L BUN/Creatinine Ratio 14.5 Glucose 113 H Lactic Acid Calcium 9.2 Urine Color Urine Clarity Urine pH Ur Specific [place] Urine Protein Urine Glucose (UA) Urine Ketones Urine Occult Blood Urine Nitrite Urine Bilirubin Urine Urobilinogen Ur Leukocyte Esterase Urine RBC Urine WBC Ur Squamous Epith Cells Ur Renal Epithelial Cell Amorphous Sediment Urine Bacteria Urine Mucus POC Glucose 05/09/19 05/09/19 05/09/19 17:45 11:39 06:51 POC Glucose 202 H 103 120 H 05/08/19 22:51 POC Glucose 111 H Medical Necessity - Tobacco Use Smoking Status: Current every day smoker Tobacco Use: Non-smoker Assessment/Plan #1 bilateral ureteral obstruction from a large renal calculi-status post op day #1 cystoscopy with right retrograde pyelogram, right stent placement, left retrograde pyelogram and attempted left stent placement (failed)-urology is participating in her care #2 hematuria-secondary to #1, continue to monitor patient, CBC in the morning #3 essential hypertension #4 Alzheimer's dementia #5 hyperlipidemia #6 type 2 diabetes continue to monitor blood sugars #7 probable stage III chronic kidney disease-etiology unclear #8 hypokalemia-patient was given oral potassium supplementation, recheck labs tomorrow, I will decrease the patient's hydrochlorothiazide to 25 mg daily Code Visit Inpatient E&M: 47149 Subs Hosp L2
[2019-05-09 22:13] VITALS: BP 142/71; PULSE 69; RESP 16; TEMP 36.6; O2SAT 99
[2019-05-09] MEDS: Donepezil HCl 5 MG Tablet PO (22:19)
[2019-05-09] MEDS: Donepezil HCl 10 MG Tablet PO (22:19)
[2019-05-09 22:35] LABS: Bedside Glucose 152 mg/dL (70-110)
[2019-05-10 02:05] VITALS: BP 155/64; PULSE 68; RESP 16; TEMP 36.9; O2SAT 96
[2019-05-10] MEDS: 0.9% NaCl Peripheral Flush Adult/Peds IV (02:11)
[2019-05-10] MEDS: Ondansetron 4 MG/2 ML Vial IV (02:11)
[2019-05-10 02:25] LABS: Bedside Glucose 119 mg/dL (70-110)
[2019-05-10] MEDS: cloNIDine HCl 0.1 MG Tablet PO (06:35)
[2019-05-10] MEDS: 0.9% Normal Saline 1,000 ML 100 ML IV (06:35)
[2019-05-10 06:40] LABS: Bedside Glucose 103 mg/dL (70-110)
[2019-05-10 08:00] LABS: Anion Gap 6 (5-15); BUN 22 mg/dL (7-18); BUN/Creat Ratio 16.1 RATIO (10-20); Chloride 111 mmol/L (98-107); Creatinine, Serum 1.37 mg/dL (0.55-1.02); EST Glomerular Filtration Rate 41 mL/min (>60); Est Glom Filt Rate - Afr Amer 49 mL/min (>60); Estimated Creatinine Clearance 34.41 ml/min; Glucose 129 mg/dL (74-106); Potassium 3.6 mmol/L (3.5-5.1); Sodium Level 145 mmol/L (136-145)
[2019-05-10 08:05] VITALS: BP 138/68; PULSE 67; RESP 16; TEMP 36.5; O2SAT 96
--- NOTE | 2019-05-10 09:38 | PCM.PN.BLA ---
Progress Note 68-year-old female status post stent placement on the right side for obstructing stone and essentially a solitary right kidney, left kidney is atrophic chronically obstructed nonfunctioning. Urine was fairly bloody yesterday but today is clearing up a lot more. I held her Lovenox. 68-year-old female status post stent placement creatinine is stable urine output is decent, urine is clearing certainly I think she can be discharged home once medically stable and she can follow-up in my office to discuss options of treatment for her kidney stones.
[2019-05-10 10:00] VITALS: RESP 18
[2019-05-10] MEDS: Famotidine 20 MG Tablet PO (10:52)
[2019-05-10] MEDS: Losartan Potassium 100 MG Tablet PO (10:52)
[2019-05-10] MEDS: hydroCHLOROthiazide 25 MG Tablet PO (10:52)
[2019-05-10] MEDS: Ciprofloxacin 500 MG Tablet PO (10:52)
[2019-05-10] MEDS: Eplerenone 25 MG Tablet 50 MG PO (10:52)
[2019-05-10] MEDS: Sertraline 50 MG Tablet 25 MG PO (10:53)
[2019-05-10] MEDS: Fenofibrate 48 MG Tablet PO (10:54)
[2019-05-10 12:11] LABS: Bedside Glucose 113 mg/dL (70-110)
--- NOTE | 2019-05-10 12:57 | PCM.DC ---
- Discharge Diagnoses Current Active Problems: Current Active and Chronic Problems Alzheimer disease (Chronic) HTN (hypertension) (Chronic) HLD (hyperlipidemia) (Chronic) Depression (Chronic) GERD (gastroesophageal reflux disease) (Chronic) Diabetes (Chronic) You will use the following diet at home:: Calorie/Carbohydrate Controlled (specify 1200, 1400, etc) - no added sugar Your food should be the consistency of: Regular Your liquids should be the consistency of: Regular/Thin Discharge Activity: Return to Normal Activity Weight Bearing Status: Full weight bearing Allergies/Adverse Reactions: Allergies amoxicillin [From Augmentin] Adverse Reaction (Verified 05/08/19 16:58) Hives cephalexin [From Keflex] Adverse Reaction (Verified 05/08/19 16:58) Vomiting clavulanic acid [From Augmentin] Adverse Reaction (Verified 05/08/19 16:58) Hives Penicillins Adverse Reaction (Verified 05/08/19 16:58) Vomiting shellfish derived Adverse Reaction (Verified 05/08/19 16:58) Vomiting Medications to take at Discharge Clonidine HCl [Catapres] 0.1 mg PO TID 05/08/19 Donepezil HCl 10 mg PO QHS 05/08/19 Eplerenone 50 mg PO DAILY 05/08/19 Famotidine 20 mg PO DAILY 05/08/19 Fenofibrate [Tricor] 145 mg PO DAILY 05/08/19 Losartan Potassium 100 mg PO DAILY 05/08/19 Metformin HCl 500 mg PO BID 05/08/19 Multivit with Iron,Minerals [Complete Senior] 1 tab PO DAILY 05/08/19 Ondansetron HCl [Zofran] 4 mg PO Q8H PRN 05/08/19 Sertraline HCl [Zoloft] 25 mg PO DAILY 05/08/19 proMETHazine tablet [Phenergan tablet] 12.5 mg PO Q6H PRN PRN 05/08/19 Ciprofloxacin [Cipro] 500 mg PO BID #10 tab 05/10/19 Hydrochlorothiazide [Hctz] 25 mg PO DAILY #30 tab 05/10/19 The following prescriptions were given: Ciprofloxacin [Cipro] 500 mg PO BID #10 tab Transmission Status: Pending to [facility] #[facility] Hydrochlorothiazide [Hctz] 25 mg PO DAILY #30 tab Transmission Status: Pending to [facility] #[facility] Primary Care Physician: Sofia Pitts DO [Primary Care Provider] - Please follow up with your Primary Care Physician in: in 2 weeks Test Results: Test results from this visit will be discussed in further detail at your follow-up appointment, if applicable. Please Follow Up With: Erik Ramirez MD When: in one week
[2019-05-10 14:00] VITALS: BP 150/62; PULSE 72; RESP 18; TEMP 36.9; O2SAT 98
--- NOTE | 2019-05-10 18:04 | PCM.PROGNOTE ---
Subjective: Patient was seen and examined today, urology has released the patient if she is medically stable which I believe she is at this time. I have adjusted the patient's blood pressure medications due to her hypokalemia. I have also readjusted her Alzheimer's medication-she had been taking a total of 15 mg daily of Aricept which is too high of a dose. Patient voices no complaints to this examiner today, she remains pleasantly confused. - Physical Exam General: Alert, Cooperative, No apparent distress, Well developed, Confused HEENT: Atraumatic, PERRLA, EOMI, Normocephalic Oral: Moist Mucosa Neck: Supple, Trachea Midline, Thyroid Normal Size and Texture Lungs: Clear to auscultation, Normal air movement, No rhonchi, No wheeze Cardiovascular: Regular rate, Regular Rhythm, Normal S1, Normal S2, No murmurs, No Ectopic Activity, PMI Normal, No rub noted, No Gallop Abdomen: Bowel Sounds Present, Soft, Non Tender, Non-Distended, No hernias noted Extremities: No clubbing, No cyanosis, No edema, Capillary Refill Less than 3 Seconds Skin: No rashes, No breakdown Musculoskeletal: No Tenderness to Palpation of Joints or Extremities Neurological: Cranial nerves II-XII grossly intact, Neuro grossly intact, Sensory exam intact to light touch and pain Psych/Mental Status: - - Patient is alert, she has mild to moderate confusion but responds to simple questions concerning her well-being appropriately. She is not oriented as to time or place however. Vital Signs Temp Pulse Resp BP Pulse Ox 98.5 F 72 18 150/62 H 98 05/10/19 14:00 05/10/19 14:00 05/10/19 14:00 05/10/19 14:00 05/10/19 14:00 Oxygen Delivery Method Room Air Weight: 74.1 kg Body Mass Index (BMI) 28.0 Intake and Output for Last 24 Hours 05/08/19 05/09/19 05/10/19 23:59 23:59 23:59 Intake Total 787.5 / 787.5 3150 / 3450 3191.67 / 3191.67 Output Total 1400 / 1825 725 / 725 Balance 787.5 / 587.5 1750 / 1625 2466.67 / 2466.67 Laboratory Tests Past 24 Hrs 05/10/19 06:50 Sodium 145 Potassium 3.6 Chloride 111 H Carbon Dioxide 28.0 Anion Gap 6 BUN 22 H Creatinine 1.37 H Estim Creat Clear Calc 34.41 Est GFR (MDRD) Af Amer 49 L Est GFR (MDRD) Non-Af 41 L BUN/Creatinine Ratio 16.1 Glucose 129 H Calcium 9.0 POC Glucose 05/10/19 05/10/19 05/10/19 11:55 06:33 02:02 POC Glucose 113 H 103 119 H 05/09/19 22:10 POC Glucose 152 H Medical Necessity - Tobacco Use Smoking Status: Current every day smoker Tobacco Use: Non-smoker Assessment/Plan #1 bilateral ureteral obstruction from a large renal calculi-status post op day #2 cystoscopy with right retrograde pyelogram, right stent placement, left retrograde pyelogram and attempted left stent placement (failed)-urology is participating in her care #2 hematuria-secondary to #1-resolved at this time #3 essential hypertension #4 Alzheimer's dementia #5 hyperlipidemia #6 type 2 diabetes continue to monitor blood sugars #7 probable stage III chronic kidney disease-etiology unclear #8 hypokalemia
--- NOTE | 2019-05-10 18:07 | DS.PCM_ITS ---
Discharge Date and Diagnosis Date of Admission: 05/08/19 Date of Discharge: 05/10/19 - Primary Discharge Diagnosis #1 bilateral ureteral obstruction from right ureteral stone and presence of bilateral kidney stones #2 hematuria-secondary to ureteral stent placement #3 essential hypertension #4 Alzheimer's dementia #5 hyperlipidemia #6 type 2 diabetes #7 probable stage III chronic kidney disease-etiology unclear #8 hypokalemia-secondary to diuretic usage #9 nausea and vomiting secondary to ureteral obstruction - Secondary Discharge Diagnosis Chronic Problems Alzheimer disease (Chronic) HTN (hypertension) (Chronic) HLD (hyperlipidemia) (Chronic) Depression (Chronic) GERD (gastroesophageal reflux disease) (Chronic) Diabetes (Chronic) Hospital Course and Treatment Operations: - - Cystoscopy, right retrograde pyelogram, right stent placement, left retrograde pyelogram, attempted left ureteral stent placement which was unsuccessful-05/08/2019 Procedures: None Summary of Care Provided: The patient is a 68 year old F who was seen in the emergency room at [facility] with chief complaint of nausea and vomiting, work-up in the emergency room revealed white blood cell count of 11.6, potassium was 3.5, creatinine was 1.49. Urinalysis showed 100 leukocyte esterase and 5-10 WBCs and 0-[address] scan of the abdomen and pelvis was obtained with IV and p.o. contrast there was noted to be a right sided nephro lithiasis with a stone in the central collecting system, there is noted to be severely atrophied left kidney with numerous large stones, there was also noted to be a stone in the left central collecting system and left hydronephrosis. Patient was given Zofran for nausea, urology was contacted and requested hospitalist service to admit the patient, patient was admitted to the hospitalist service, she underwent cystoscopy and retrograde pyelogram by urology-urology was unable to put a stent in the left ureter due to the size of the stone in the left ureter. It was felt that the patient's left kidney was atrophied and had very little function and so no further treatment was attempted. There was a stent put in the right ureter. Patient was given supplemental potassium due to her low potassium, her blood pressure medication was adjusted due to the fact she was on 2 different diuretics. Patient had no complications during her hospital stay. On 05/10/2019, patient was seen and examined: On examination she appeared in good health and spirits. Vital signs as documented. Skin warm and dry and without overt rashes. Neck without JVD. Lungs clear. Heart exam notable for regular rhythm, normal sounds and absence of murmurs, rubs or gallops. Abdomen unremarkable and without evidence of organomegaly, masses, or abdominal aortic enlargement. Extremities nonedematous. Neuro: Cranial nerves II through XII are grossly intact, no focal motor deficits were noted, sensation to light touch and pinprick is intact. Psych: Patient is alert, she is oriented as to person but not place or time. On 05/10/2019, patient was seen and examined and felt to be stable condition for discharge home - Physical Exam Vital Signs Temp Pulse Resp BP Pulse Ox 98.5 F 72 18 150/62 H 98 05/10/19 14:00 05/10/19 14:00 05/10/19 14:00 05/10/19 14:00 05/10/19 14:00 Oxygen Delivery Method Room Air Weight: 74.1 kg Body Mass Index (BMI) 28.0 Intake and Output for Last 24 Hours 05/08/19 05/09/19 05/10/19 23:59 23:59 23:59 Intake Total 787.5 / 787.5 3150 / 3450 3191.67 / 3191.67 Output Total 1400 / 1825 725 / 725 Balance 787.5 / 587.5 1750 / 1625 2466.67 / 2466.67 Laboratory Tests Past 24 Hrs 05/10/19 06:50 Sodium 145 Potassium 3.6 Chloride 111 H Carbon Dioxide 28.0 Anion Gap 6 BUN 22 H Creatinine 1.37 H Estim Creat Clear Calc 34.41 Est GFR (MDRD) Af Amer 49 L Est GFR (MDRD) Non-Af 41 L BUN/Creatinine Ratio 16.1 Glucose 129 H Calcium 9.0 POC Glucose 05/10/19 05/10/19 05/10/19 11:55 06:33 02:02 POC Glucose 113 H 103 119 H 05/09/19 22:10 POC Glucose 152 H Discharge Activity: Return to Normal Activity Weight Bearing Status: Full weight bearing Home Medications: Medications to take at Discharge Clonidine HCl [Catapres] 0.1 mg PO TID 05/08/19 Donepezil HCl 10 mg PO QHS 05/08/19 Eplerenone 50 mg PO DAILY 05/08/19 Famotidine 20 mg PO DAILY 05/08/19 Fenofibrate [Tricor] 145 mg PO DAILY 05/08/19 Losartan Potassium 100 mg PO DAILY 05/08/19 Metformin HCl 500 mg PO BID 05/08/19 Multivit with Iron,Minerals [Complete Senior] 1 tab PO DAILY 05/08/19 Ondansetron HCl [Zofran] 4 mg PO Q8H PRN 05/08/19 Sertraline HCl [Zoloft] 25 mg PO DAILY 05/08/19 proMETHazine tablet [Phenergan tablet] 12.5 mg PO Q6H PRN PRN 05/08/19 Ciprofloxacin [Cipro] 500 mg PO BID #10 tab 05/10/19 Hydrochlorothiazide [Hctz] 25 mg PO DAILY #30 tab 05/10/19 Following Prescrptions Were Given to Patient: Ciprofloxacin [Cipro] 500 mg PO BID #10 tab Transmission Status: Received by [facility] #69 Hydrochlorothiazide [Hctz] 25 mg PO DAILY #30 tab Transmission Status: Received by [facility] #69 Primary Care Physician: Sofia Pitts DO [Primary Care Provider] - Please follow up with your Primary Care Physician in: in 2 weeks Please Follow Up With: Erik Ramirez MD When: in one week Disposition: Home Minutes spent on discharge:: 32 Patient Condition:: Stable Medical Necessity - Tobacco Use Smoking Status: Current every day smoker Tobacco Use: Non-smoker Meaningful Use Info Meaningful Use Diagnoses (Choose all that apply): None applicable Code Visit Inpatient E&M: 62011 Disch Hosp
== END 2019-05-10 14:33 | disposition home or self-care (01) | DRG 661 ==
LOC: ED 17:45 → MS3 20:35
PROVIDERS: Urology; Admitting Provider Family Medicine; Emergency Provider Emergency Medicine; Family Provider Family Medicine; PCP Family Medicine; Visit Provider Internal Medicine
PROC: 0T768DZ Dilation of Right Ureter with Intraluminal Device, Via Natural or Artificial Opening Endoscopic (ICD-10-PCS; principal; 2019-05-08 20:00)
DX: N13.2 Hydronephrosis with renal and ureteral calculous obstruction (principal); N26.1 Atrophy of kidney (terminal); E78.5 Hyperlipidemia, unspecified; T50.2X5A Adverse effect of carbonic-anhydrase inhibitors, benzothiadiazides and other diuretics, initial encounter; E87.6 Hypokalemia; F02.80 Dementia in other diseases classified elsewhere, unspecified severity, without behavioral disturbance, psychotic disturbance, mood disturbance, and anxiety; G30.9 Alzheimer's disease, unspecified; K21.9 Gastro-esophageal reflux disease without esophagitis; F32.9 Major depressive disorder, single episode, unspecified; E11.9 Type 2 diabetes mellitus without complications; N18.3 Chronic kidney disease, stage 3 (moderate); I10 Essential (primary) hypertension; R31.0 Gross hematuria; Z79.84 Long term (current) use of oral hypoglycemic drugs
CPT/HCPCS: 36415; 74177; 76000; 80048; 80053; 81001; 82962; 83605; 83690; 84484; 85025; 93005; 97162; 97166; 97530; 97535; 99284; J7030; Q9967; A4216; C1769; C2617; J0744; J2405

== ENCOUNTER → 2019-05-20 16:13 | Outpatient (CLI) | payer MEDICARE, OTHER, SELFPAY ==
[2019-05-08 22:14] VITALS: BMI 28.0
--- NOTE | 2019-05-20 16:44 | RAD_ITS ---
STUDY: X-RAY - ABDOMEN/PELVIS REASON FOR EXAM: Female, 68 years old. Kidney stone TECHNIQUE: Two AP supine views of the abdomen and pelvis. COMPARISON: CT dated 05/08/2019 FINDINGS: There is no bowel obstruction. There is air and stool to the level of the rectum. There is a right ureteral stent in place. There are multiple bilateral calcifications overlying the renal fossa which likely represent renal stones. The largest is on the left at approximately the L2 level. These are not significantly changed when compared with the CT dated 01/05/2019. The visualized osseous structures are within normal limits. RAD/Abdomen Single View IMPRESSION: No bowel obstruction. Multiple bilateral calcifications overlying the renal fossa which likely represent renal stones. These are not significantly changed when compared with the CT dated 05/08/2019. Right ureteral stent in place. Electronically Signed: Cruz Granados, at 15:35 EDT Tel , Service support ,
[2019-05-20 17:09] LABS: Hematocrit 43.3 % (37-47); Hemoglobin 14.1 g/dL (12.0-15.0); Mean Corp Hgb Conc 32.6 g/dL (32-36); Mean Corpuscular Hgb 28.6 pg (27.0-32.0); Mean Corpuscular Volume 87.8 fL (81-99); Mean Platelet Vol. 9.9 fl (6.2-12.0); Platelet Count 305 K/mm3 (150-450); RBC Distribution Width CV 13.2 % (11.6-14.6); RBC Distribution Width SD 42.1 fl (35.1-43.9); Red Blood Count 4.93 M/mm3 (4.2-5.4); White Blood Count 10.9 K/mm3 (4.4-11.0)
[2019-05-20 17:38] LABS: Anion Gap 7 (5-15); BUN 29 mg/dL (7-18); BUN/Creat Ratio 21.2 RATIO (10-20); Calcium,Total 9.7 mg/dL (8.5-10.1); Chloride 106 mmol/L (98-107); Creatinine, Serum 1.37 mg/dL (0.55-1.02); EST Glomerular Filtration Rate 41 mL/min (>60); Est Glom Filt Rate - Afr Amer 49 mL/min (>60); Glucose 137 mg/dL (74-106); Potassium 3.9 mmol/L (3.5-5.1); Sodium Level 142 mmol/L (136-145)
== END ==
PROVIDERS: Family Provider Family Medicine; PCP Family Medicine; Referring Provider Urology; Visit Provider Urology
DX: N20.0 Calculus of kidney (principal)
CPT/HCPCS: 36415; 74018; 80048; 85027; 87086; 87088

== ENCOUNTER 2019-05-30 11:28 | Day surgery (SDC) | payer MEDICARE, OTHER, SELFPAY ==
[2019-05-08 22:14] VITALS: BMI 28.0
[2019-05-30] VITALS (9 sets, daily range): BP systolic 112–154; BP diastolic 58–83; PULSE 78–87; RESP 16–18; TEMP 36.4–36.9; O2SAT 95–99; BMI 27.0
--- NOTE | 2019-05-30 11:30 | RAD_ITS ---
STUDY: X-RAY - ABDOMEN/PELVIS REASON FOR EXAM: Female, 68 years old. Preoperative evaluation. TECHNIQUE: Single AP view of the abdomen / pelvis. COMPARISON: Comparison is made with prior study dated May 20, 2019. FINDINGS: A right-sided double-J stent catheter is in situ. The proximal tip is in the upper pole calyx of the right kidney and the distal tip is in the right side of the bladder. There is a moderate amount of colonic fecal material. Stable appearance of the multiple bilateral renal calculi. Stable 2.2 cm stone in the left renal pelvis. Normal soft tissue structures. There are diffuse degenerative changes of the visualized lumbar spine. RAD/Abdomen Single View IMPRESSION: Stable examination. Electronically Signed: Remigio Lowery, at 12:43 EDT , Service support ,
[2019-05-30] MEDS: Lactated Ringers 1,000 ML 100 ML IV ×2 (12:17→16:59)
[2019-05-30 12:25] LABS: Bedside Glucose 151 mg/dL (70-110)
[2019-05-30] MEDS: Cefazolin 2 GM in 0.9% Normal Saline 100 ML IV (15:33)
[2019-05-30 16:35] LABS: Bedside Glucose 103 mg/dL (70-110)
--- NOTE | 2019-05-30 16:39 | PCM.HP.BLA ---
History and Physical Date of Admission: 05/30/19 Patient returns, 68-year-old female who has fairly severe dementia comes in today with her sister and she lives with her family member. She presented to the emergency room with intractable nausea vomiting CAT scan was done at demonstrated a stone blocking the left kidney but essentially a nonfunctioning left kidney. In the right kidney she has a stone blocking the right kidney with a healthy right kidney and she underwent a cystoscopy and stent placement emergent fashion. She now presents for a follow-up visit after destruction the hospital. She still having occasional nausea vomiting not a severe as before but has not completely resolved. Today we talked about treatment for her right kidney stone and the fact that she only has a solitary right kidney. ALLERGIES: Augmentin Bactrim Biaxin Cephalexin Clear Medical Tape Clindamycin Doxycycline Latex Naproxen Penicillin Shellfish Sulfa Tetracycline Vancomycin MEDICATIONS: Hydrochlorothiazide Clonidine Donepezil Hcl Eplerenone Fenofibrate Losartan Potassium Metformin Hcl Multivitamin Sertraline Hcl Tylenol PSH: Cystoscopy Insert Stent, Right - 05/08/2019 Cystoscopy Retrogrades, Left - 05/08/2019 NON- PSH: Cholecystectomy Colonoscopy Patient documented to have received pneumococcal vaccination Shoulder Surgery (Unspecified) PMH: Endometriosis, unspecified Personal history of urinary calculi Varicose veins of other specified sites NON- PMH: Anxiety disorder, unspecified Essential (primary) hypertension Genetic anomalies of leukocytes Hyperlipidemia, unspecified Leiomyoma of uterus, unspecified Major depressive disorder, single episode, unspecified Type 2 diabetes mellitus without complications Unspecified osteoarthritis, unspecified site Immunizations: None FAMILY HISTORY: Family History Unknown SOCIAL HISTORY: Marital Status: Single Preferred Language: Luxembourgish; Ethnicity: Not Or ; Race: White Current Smoking Status: Patient does not smoke anymore. Tobacco Use Assessment Completed: Used Tobacco in last 30 days? Smoking cessation counseling was provided. Does not use smokeless tobacco. Has never drank. Does not use drugs. Does not drink caffeine. Has not had a blood transfusion. REVIEW OF SYSTEMS: Constitutional: Patient reports weight loss and weight gain. Patient denies chills and fever. Eyes: Patient denies blurry vision, cataracts, and glaucoma. Ears, Nose, Mouth, Throat: Patient reports hearing loss. Patient denies sinus infections and sleep apnea. Cardiovascular: Patient reports swollen ankles. Patient denies chest pains, irregular heartbeat, and pacemaker/defib. Respiratory: Patient denies shortness of breath, wheezing, oxygen, and cpap machine. Gastrointestinal: Patient reports nausea and vomiting. Patient denies abdominal pain, diarrhea, and constipation. Genitourinary: Patient reports frequent urination, get up at night to void, leakage of urine, and history of stones. Patient denies urinary retention, painful urination, blood in the urine, frequent uti's, difficulty starting stream, weak stream/scanty, and bedwetting. Musculoskeletal: Patient denies sore muscles, back pain, and gout. Integumentary/Skin: Patient denies rash, skin cancer, and chronic itching. Neurological: Patient reports falling/unsteady. Patient denies paralysis and stroke/tia. Hematologic/Lymphatic: Patient denies abnormal bleeding, blood transfusion, swollen lymph nodes, deep venous thrombosis, and pulmonary embolism. VITAL SIGNS: 05/20/2019 03:52 PM Height 64 in / 162.56 cm BP 140/70 mmHg MULTI-SYSTEM PHYSICAL EXAMINATION: Constitutional: Well-nourished. No physical deformities. Normally developed. Good grooming. Neck: Neck symmetrical, not swollen. Normal tracheal position. Respiratory: No labored breathing, no use of accessory muscles. Cardiovascular: Normal temperature, normal extremity pulses, no swelling, no varicosities. Lymphatic: No enlargement of neck, axillae, groin. Skin: No paleness, no jaundice, no cyanosis. No lesion, no ulcer, no rash. Neurologic / Psychiatric: Oriented to time, oriented to place, oriented to person. No depression, no anxiety, no agitation. Gastrointestinal: No mass, no tenderness, no rigidity, non obese abdomen. Eyes: Normal conjunctivae. Normal eyelids. Ears, Nose, Mouth, and Throat: Left ear no scars, no lesions, no masses. Right ear no scars, no lesions, no masses. Nose no scars, no lesions, no masses. Normal hearing. Normal lips. Musculoskeletal: Normal gait and station of head and neck. PAST DATA REVIEWED: Source Of History: Patient Lab Test Review: Basic Metabolic Panel (BMP), CBC Records Review: Previous Doctor Records, Previous Hospital Records, Previous Patient Records Urine Test Review: Urinalysis X-Ray Review: C.T. Abdomen/Pelvis: Reviewed Films. Reviewed Report. Discussed With Patient. 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 No point in operating the left kidney sent that the obstructed a poorly functioning very difficult situation would not recommend a nephrectomy unless left kidney becomes infected etc. Plan to set her up for right for shockwave lithotripsy as possible she may need more than one procedure. Today will check a CBC, BMP, and x-ray of the abdomen the check for placement of the stent will set her up for right ESWL next week.
--- NOTE | 2019-05-30 16:39 | PCM.DC.URO ---
Discharge Diet: Light diet - advance as tolerated Discharge Activity: Return to Normal Activity Call your doctor if your incision/area has: Sudden Increased Bleeding Call your doctor if you observe: Coldness, Increased Pain Suture Line Care: Avoid Pulling/Pushing, Avoid Pinching/Bending Allergies/Adverse Reactions: Allergies amoxicillin [From Augmentin] Adverse Reaction (Verified 05/30/19 11:55) Hives cephalexin [From Keflex] Adverse Reaction (Verified 05/30/19 11:55) Vomiting clavulanic acid [From Augmentin] Adverse Reaction (Verified 05/30/19 11:55) Hives Penicillins Adverse Reaction (Verified 05/30/19 11:55) Vomiting shellfish derived Adverse Reaction (Verified 05/30/19 11:55) Vomiting Medications to take at Discharge Clonidine HCl [Catapres] 0.1 mg PO TID 05/08/19 Donepezil HCl 10 mg PO QHS 05/08/19 Eplerenone 50 mg PO DAILY 05/08/19 Famotidine 20 mg PO DAILY 05/08/19 Fenofibrate [Tricor] 145 mg PO DAILY 05/08/19 Losartan Potassium 100 mg PO DAILY 05/08/19 Metformin HCl 500 mg PO BID 05/08/19 Multivit with Iron,Minerals [Complete Senior] 1 tab PO DAILY 05/08/19 Sertraline HCl [Zoloft] 25 mg PO DAILY 05/08/19 proMETHazine tablet [Phenergan tablet] 12.5 mg PO Q6H PRN PRN 05/08/19 Hydrochlorothiazide [Hctz] 25 mg PO DAILY #30 tab 05/10/19 Ciprofloxacin [Cipro] 500 mg PO BID #6 tab 05/30/19 Hydrocodone Bitart/Apap 5-325 [[place] 5MG-325MG] 1 tab PO Q4H PRN PRN 5 Days #20 tab 05/30/19 The following prescriptions were given: Ciprofloxacin [Cipro] 500 mg PO BID #6 tab Prescription Printed Hydrocodone Bitart/Apap 5-325 [[place] 5MG-325MG] 1 tab PO Q4H PRN PRN 5 Days #20 tab PRN Reason: Pain Prescription Printed Primary Care Physician: Sofia Pitts DO [Primary Care Provider] - Test Results: Test results from this visit will be discussed in further detail at your follow-up appointment, if applicable. Please Follow Up With: Erik Ramirez MD When: please call to make an appointment.
--- NOTE | 2019-05-30 16:40 | PCM.OPRPT ---
Report of Operation Date of Procedure: 05/30/19 Pre-Operative Diagnosis: Right renal calculi a very large status post stent Post-Operative Diagnosis: The same Surgery/Procedure Performed:: Right extracorporeal shockwave lithotripsy staged, frist stage procedure Description of Surgical Findings:: 68-year-old female has a solitary right kidney very large obstructing stone she underwent stent placement. She also has a left kidney but this is obstructed with a large stone in the nonfunctioning left kidney with multiple stones. We talked about the options of management and recommend we proceed with shockwave lithotripsy she understands that this will require multiple procedures in order to clear this right kidney stone is fairly large. She had a stent placed about a week and half ago. 68-year-old female taken back to the operating room at the smooth induction of anesthesia she was placed supine on the table on the lithotripter table we found the large stone in the renal pelvis on the right side the stent was in place we then proceeded with shockwave lithotripsy delivering a total of 3000 shockwaves to the stone under fluoroscopic guidance we used translation technique we made sure that the F2 focal point of the machine was on the stone the entire treatment. At the end of 3000 shockwaves power up to 7 kV and a rate of 90/min we delivered the maximum treatment we could do to the stones at the one time. Still had fragments present but and will need more treatments done we will see her back next week for a KUB and then plan for second stage shockwave lithotripsy today was a successful treatment will want the stop treatment as we reached the limit. Type of Anesthesia:: General - Admit VTE Documentation VTE Present on Admission: No VTE Mechan Device Prophylaxis: SCD's
== END 2019-05-30 18:35 | disposition home or self-care (01) ==
LOC: SDC 11:29 → AC 11:40
PROVIDERS: Family Provider Family Medicine; PCP Family Medicine; Referring Provider Urology; Visit Provider Urology
PROC: (CPT 50590; principal; 2019-05-30 15:00)
DX: N20.0 Calculus of kidney (principal); E11.9 Type 2 diabetes mellitus without complications; I10 Essential (primary) hypertension; E78.5 Hyperlipidemia, unspecified; M19.90 Unspecified osteoarthritis, unspecified site; K21.9 Gastro-esophageal reflux disease without esophagitis; F32.9 Major depressive disorder, single episode, unspecified; F41.9 Anxiety disorder, unspecified; Z79.84 Long term (current) use of oral hypoglycemic drugs; Z79.899 Other long term (current) drug therapy; Z87.891 Personal history of nicotine dependence; Z87.442 Personal history of urinary calculi
CPT/HCPCS: 00873; 50590; 74018; 82962; J7120; J2405

== ENCOUNTER → 2019-06-03 12:55 | Outpatient (CLI) | payer MEDICARE, OTHER, SELFPAY ==
[2019-05-30 12:01] VITALS: BMI 27.0
--- NOTE | 2019-06-03 12:57 | RAD_ITS ---
STUDY: X-RAY - ABDOMEN/PELVIS REASON FOR EXAM: Female, 68 years old. Left-sided kidney stones, nausea TECHNIQUE: Two AP supine views of the abdomen and pelvis. COMPARISON: Previous study of 05/30/2019 FINDINGS: Normal visualized lung bases. There is an unremarkable bowel gas pattern. There is no demonstrated free abdominal air. There are innumerable calcifications in the region of the lower pole of the left kidney. An additional 2.3 x 1.3 cm calcification is seen in the region of the left renal pelvis. There is a right-sided ureteral stent with proximal portion projecting over the superior pole of the right kidney. There are noted also innumerable small calcifications of the mid to lower pole of the right kidney. A previously demonstrated 1.5 cm right renal calculus is not seen at this time. Normal soft tissue structures. There are diffuse degenerative changes of the visualized thoracolumbar spine. RAD/Abdomen Single View IMPRESSION: Bilateral nephrolithiasis as detailed above. An additional previously demonstrated 1.5 cm right renal calculus seen on the study of 05/30/2019 is not seen at this time. Right-sided ureteral stent noted. Diffuse degenerative changes of the visualized thoracolumbar spine. Electronically Signed: Riccardo Leger MD at 22:11 EDT , Service support ,
== END ==
PROVIDERS: Family Provider Family Medicine; PCP Family Medicine; Referring Provider Urology; Visit Provider Urology
DX: N20.0 Calculus of kidney (principal)
CPT/HCPCS: 74018

== ENCOUNTER 2019-06-20 08:58 | Day surgery (SDC) | payer MEDICARE, OTHER, SELFPAY ==
[2019-05-30 12:01] VITALS: BMI 27.0
--- NOTE | 2019-06-20 09:18 | RAD_ITS ---
STUDY: X-RAY - ABDOMEN/PELVIS REASON FOR EXAM: Female, 68 years old. Bilateral kidney stones. TECHNIQUE: Single AP view of the abdomen / pelvis. COMPARISON: Comparison is made with prior study dated June 03, 2019. FINDINGS: Multiple disc space narrowing and spondylosis of the lumbar spine. There is an unremarkable bowel gas pattern. A right-sided double-J stent catheter is seen with the proximal tip in the renal pelvis and distal tip in the right side of the bladder. Stable multiple calculi seen in the midpole and lower pole regions of the right kidney. Stable appearance of the multiple calcifications seen in the mid and lower poles of the left kidney. Stable 2.3 cm calculus at the left ureteropelvic junction. RAD/Abdomen Single View IMPRESSION: Stable bilateral renal calculi and right double-J stent catheter. Electronically Signed: Remigio Lowery, at 13:14 EST , Service support ,
[2019-06-20 10:03] VITALS: BP 126/61; PULSE 74; RESP 14; TEMP 35.9; O2SAT 97; BMI 26.5
[2019-06-20] MEDS: Lactated Ringers 1,000 ML 100 ML IV ×2 (10:25→13:00)
[2019-06-20 11:16] LABS: Bedside Glucose 134 mg/dL (70-110)
[2019-06-20] MEDS: Cefazolin 2 GM in 0.9% Normal Saline 100 ML IV (11:53)
[2019-06-20 13:05] VITALS: BP 126/61; BP 136/58; PULSE 70; RESP 16; TEMP 36; O2SAT 100
[2019-06-20 13:15] VITALS: BP 126/61; BP 128/60; PULSE 72; RESP 16; O2SAT 98
--- NOTE | 2019-06-20 13:15 | DCINST_ITS ---
Discharge Diet: Light diet - advance as tolerated Discharge Activity: Return to Normal Activity Call your doctor if your incision/area has: Sudden Increased Bleeding Suture Line Care: Avoid Pulling/Pushing, Avoid Pinching/Bending Allergies/Adverse Reactions: Allergies amoxicillin [From Augmentin] Adverse Reaction (Verified 06/17/19 11:12) Hives cephalexin [From Keflex] Adverse Reaction (Verified 06/17/19 11:12) Vomiting clavulanic acid [From Augmentin] Adverse Reaction (Verified 06/17/19 11:12) Hives latex Adverse Reaction (Verified 06/20/19 10:01) Rash Penicillins Adverse Reaction (Verified 06/17/19 11:12) Vomiting shellfish derived Adverse Reaction (Verified 06/17/19 11:12) Vomiting Medications to take at Discharge Clonidine HCl [Catapres] 0.1 mg PO TID 05/08/19 Donepezil HCl 10 mg PO QHS 05/08/19 Eplerenone 50 mg PO DAILY 05/08/19 Famotidine 20 mg PO DAILY 05/08/19 Fenofibrate [Tricor] 145 mg PO DAILY 05/08/19 Losartan Potassium 100 mg PO DAILY 05/08/19 Metformin HCl 500 mg PO BID 05/08/19 Multivit with Iron,Minerals [Complete Senior] 1 tab PO DAILY 05/08/19 Sertraline HCl [Zoloft] 25 mg PO DAILY 05/08/19 proMETHazine tablet [Phenergan tablet] 12.5 mg PO Q6H PRN PRN 05/08/19 Hydrochlorothiazide [Hctz] 25 mg PO DAILY #30 tab 05/10/19 Primary Care Physician: Sofia Pitts DO [Primary Care Provider] - Test Results: Test results from this visit will be discussed in further detail at your follow- up appointment, if applicable. Please Follow Up With: Joi West Dr[facility]s TELEPHONE [employer]ICITOR When: in 2 weeks, please call to make an appointment.
--- NOTE | 2019-06-20 13:16 | PCM.OPRPT ---
Report of Operation Date of Procedure: 06/20/19 Description of Surgical Findings:: Date of Procedure: 06/20/19 Pre-Operative Diagnosis: Right kidney stone status post first stage ESWL presents for second stage treatment Post-Operative Diagnosis: Same Surgery/Procedure Performed:: Right extracorporeal shockwave lithotripsy second stage treatment Description of Surgical Findings:: 63-year-old female with a stone in the right kidney status post stent placement a few weeks ago she underwent shockwave lithotripsy for large stone in the right kidney which broke up fairly well. KUB today demonstrates multiple fragments still in the right kidney and she will need another treatment today so she is going to go second stage shockwave lithotripsy. First stage was fairly successful as multiple stone fragments were broken up the small pieces and working to treat the remaining fragments today as possible she may need more than one treatment remaining. Patient was taken back to the operating room after smooth induction of general anesthesia she was placed supine on the table and then placed supine on the table we then used the lithotripter table to find the stones in the right kidney multiple stones were located in the right kidney the stent was still in place we used fluoroscopy to identify the stone location and then we delivered shockwave lithotripsy the stones at a rate of 90 power up to 7. A total of 3000 shockwaves delivered to multiple stone fragments in the right kidney under fluoroscopic guidance making sure that the stones were the F2 focal point the entire time at the end of the treatment cycle. Patient anesthetic was reversed to take back to PACU in good condition and will see her back in 10 days with a x-ray to see if she needs any more treatment. Type of Anesthesia:: General Drains: stent on right. - Admit VTE Documentation VTE Present on Admission: No VTE Mechan Device Prophylaxis: SCD's
[2019-06-20 13:30] VITALS: BP 126/61; BP 128/59; PULSE 72; RESP 16; TEMP 36; O2SAT 97
[2019-06-20 13:36] LABS: Bedside Glucose 105 mg/dL (70-110)
[2019-06-20 14:52] VITALS: BP 126/61; BP 131/59; PULSE 83; RESP 16; TEMP 36.5; O2SAT 97
== END 2019-06-20 14:54 | disposition home or self-care (01) ==
LOC: SDC 08:58 → AC 08:59
PROVIDERS: Family Provider Family Medicine; PCP Family Medicine; Referring Provider Urology; Visit Provider Urology
PROC: (CPT 50590; principal; 2019-06-20 11:00)
DX: N20.0 Calculus of kidney (principal); E11.9 Type 2 diabetes mellitus without complications; I10 Essential (primary) hypertension; E78.00 Pure hypercholesterolemia, unspecified; K21.9 Gastro-esophageal reflux disease without esophagitis; Z79.84 Long term (current) use of oral hypoglycemic drugs; Z79.899 Other long term (current) drug therapy; Z78.0 Asymptomatic menopausal state; Z87.891 Personal history of nicotine dependence
CPT/HCPCS: 50590; 74018; 82962; J7120; J2405

== ENCOUNTER 2019-06-26 08:21 | Inpatient (IN) | payer MEDICARE, OTHER, SELFPAY ==
[2019-06-26 08:21] VITALS: BP 142/68; PULSE 77; RESP 16; TEMP 36.5; O2SAT 99; BMI 25.7
--- NOTE | 2019-06-26 08:38 | ED.DCSUM_ITS ---
History of Present Illness Chief Complaint: Diarrhea Detail of Chief Complaint: Nausea and diarrhea Informant: Patient, Family Onset: Yesterday Current Severity: Moderate Maximum Severity: Moderate Narrative: Patient presents with nausea and diarrhea. She is had some nausea and vomiting for quite some time. She is currently undergoing work-up and evaluation for kidney stones. Daughter states that she was here last week for stent and lithotripsy. Patient states she had a good day yesterday. She did eat take out for dinner last night. Early this morning she woke with abdominal cramping and diarrhea. She states every 3 hours she is been getting up to have a bowel movement. She has not noted any blood. She has not noted a fever. She denies abdominal pain other than abdominal cramping just before she has diarrhea. - Past Medical History (1) Kidney stone Status: Chronic (2) Alzheimer disease Status: Chronic (3) Diabetes Status: Chronic (4) GERD (gastroesophageal reflux disease) Status: Chronic (5) HLD (hyperlipidemia) Status: Chronic (6) HTN (hypertension) Status: Chronic Past Medical History - Allergies and Home Meds Allergies/Adverse Reactions: Allergies amoxicillin [From Augmentin] Adverse Reaction (Verified 06/17/19 11:12) Hives cephalexin [From Keflex] Adverse Reaction (Verified 06/17/19 11:12) Vomiting clavulanic acid [From Augmentin] Adverse Reaction (Verified 06/17/19 11:12) Hives latex Adverse Reaction (Verified 06/20/19 10:01) Rash Penicillins Adverse Reaction (Verified 06/17/19 11:12) Vomiting shellfish derived Adverse Reaction (Verified 06/17/19 11:12) Vomiting Primary Care Physician: Sofia Pitts DO [Primary Care Provider] - Doctors: James Surgical History: cholecystectomy Smoking Status: Former smoker - Family History Maternal Family History: Reports: Diabetes, Heart Disease Paternal Family History: Reports: Diabetes, Heart Disease Review of Systems General: Denies: Chills, Fever Eyes: Denies: Visual changes - bilaterally ENT: Denies: Bilateral ear pain Cardiovascular: Denies: Chest pain, Palpitations Respiratory: Denies: Dyspnea, Cough Gastrointestinal: Reports: Abdominal pain, Nausea, Diarrhea. Denies: Vomiting, Melena, Hematochezia Genitourinary: Denies: Dysuria Musculoskeletal: Denies: Extremity Pain Skin: Denies: Rash Neurological: Denies: Headache Allergy: Denies: Uticaria Physical Exam Vital Signs/Narrative: Vital Signs Temp Pulse Resp BP Pulse Ox 06/26/19 08:21 97.7 F L 77 16 142/68 H 99 Inital Vital Signs reviewed: Yes General: Well nourished, Well developed Head: Normocephalic ENT: Moist mucous membranes Neck: Supple Cardiovascular: Regular rate, Regular rhythm Respiratory: No distress, CTA bilaterally Abdomen: Soft, Nontender, Hypoactive bowel sounds Extremities: Nontender Skin: Normal color Neurological: Alert, Oriented x3 Psychological: Normal affect Diagnostic/Tx/Re-eval Impressions Abdomen/Pelvis CT 06/26/19 09:52 IMPRESSION: Right perinephric hematoma. Right double-J stent catheter. Stable calculus in the lower pole calyx of the right kidney. Left hydronephrosis and left renal atrophy. Stable appearance of the left staghorn calculus. Electronically Signed: Remigio Beverley, at 11:19 EST , Service support , 06/26/19 09:52 Abdomen/Pelvis without Cont [CT] Stat Laboratory Results 06/26/19 06/26/19 06/26/19 09:07 09:07 09:32 WBC 10.2 RBC 3.79 L Hgb 10.9 L Hct 32.8 L MCV 86.5 MCH 28.8 MCHC 33.2 RDW Std Deviation 41.1 RDW Coeff of Naa 13.1 Plt Count 257 MPV 9.5 Immature Gran % (Auto) 0.500 Neut % (Auto) 69.3 Lymph % (Auto) 18.5 L [place] % (Auto) 9.7 Eos % (Auto) 1.6 Baso % (Auto) 0.4 Absolute Neuts (auto) 7.0 Absolute Lymphs (auto) 1.88 Nucleated RBC % 0 Sodium 140 Potassium 3.7 Chloride 103 Carbon Dioxide 26.0 Anion Gap 11 BUN 61 H Creatinine 4.32 H Estim Creat Clear Calc 10.91 Est GFR (MDRD) Af Amer 13 L Est GFR (MDRD) Non-Af 11 L BUN/Creatinine Ratio 14.1 Glucose 92 Calcium 9.6 Urine Color Yellow Urine Clarity Cloudy Urine pH 6.0 Ur Specific [place] 1.015 Urine Protein 100 H Urine Glucose (UA) Normal Urine Ketones 5 H Urine Occult Blood 250 H Urine Nitrite Negative Urine Bilirubin Negative Urine Urobilinogen Normal Ur Leukocyte Esterase 500 H Urine RBC > 100 SEEN Urine WBC 10-25 SEEN Ur Squamous Epith Cells 0-5 SEEN Urine Bacteria 1+ Urine Mucus 0 SEEN - Medical Decision Making She was given Zofran and IV fluids. Test results were discussed with patient and daughter at bedside as well as Dr. Ramirez. Dr. Ramirez asked to have hospitalist admit the patient secondary to her multiple medical problems. He will review her CAT scan and see her in consult later today. ED Disposition - Plan for ED Patient: Disposition: Acute Care Hospital [facility] Diagnosis: Acute kidney injury, Perinephric hematoma Referrals: Sofia Pitts DO [Primary Care Provider] -
[2019-06-26] MEDS: Ondansetron 4 MG/2 ML Vial IV (09:05)
[2019-06-26] MEDS: 0.9% Normal Saline 1,000 ML 150 ML IV ×3 (09:05→22:00)
[2019-06-26 09:16] LABS: Absolute Lymphocyte Count 1.88 X10^3/uL (0.83-4.51); Basophil# 0.04 X10^3/uL; Basophil% 0.4 % (0-1); Eosinophil# 0.16 X10^3/uL; Eosinophils% 1.6 % (0-5); Hematocrit 32.8 % (37-47); Hemoglobin 10.9 g/dL (12.0-15.0); Lymphocyte # 1.88 X10^3/ul (4.0); Lymphocyte % 18.5 % (19-41); Mean Corp Hgb Conc 33.2 g/dL (32-36); Mean Corpuscular Hgb 28.8 pg (27.0-32.0); Mean Corpuscular Volume 86.5 fL (81-99); Mean Platelet Vol. 9.5 fl (6.2-12.0); Monocyte# 0.99 X10^3/uL; Monocyte% 9.7 % (0-10); NRBC Flagged by Analyzer 0 % (0-5); Neutrophil # 7.04 X10^3/uL (2.7-7.7); Neutrophil % 69.3 % (47-70); Platelet Count 257 K/mm3 (150-450); RBC Distribution Width CV 13.1 % (11.6-14.6); RBC Distribution Width SD 41.1 fl (35.1-43.9); Red Blood Count 3.79 M/mm3 (4.2-5.4); White Blood Count 10.2 K/mm3 (4.4-11.0)
[2019-06-26 09:25] LABS: Anion Gap 11 (5-15); BUN 61 mg/dL (7-18); BUN/Creat Ratio 14.1 RATIO (10-20); Calcium,Total 9.6 mg/dL (8.5-10.1); Chloride 103 mmol/L (98-107); Creatinine, Serum 4.32 mg/dL (0.55-1.02); EST Glomerular Filtration Rate 11 mL/min (>60); Est Glom Filt Rate - Afr Amer 13 mL/min (>60); Estimated Creatinine Clearance 10.91 ml/min; Glucose 92 mg/dL (74-106); Potassium 3.7 mmol/L (3.5-5.1); Sodium Level 140 mmol/L (136-145)
[2019-06-26 09:36] LABS: Mucous, Urine 0 SEEN /hpf (<or=2+)
[2019-06-26 09:40] LABS: Color, Urine Yellow (Yellow); Glucose, Dipstick Normal (Normal); Ketone-Dipstick 5 mg/dl (Negative); Leukocyte Esterase-Dipstick 500 /ul (Negative); Nitrite-Dipstick Negative (Negative); Occult Blood-Urine 250 /ul (Negative); Protein-Dipstick 100 mg/dl (Negative); Specific Gravity, Urine 1.015 (1.002-1.030); Urine Bilirubin Dipstick Negative (Negative); Urine Clarity Cloudy (Clear); Urine Urobilinogen Normal (Normal)
--- NOTE | 2019-06-26 09:52 | CT_ITS ---
STUDY: CT ABDOMEN AND PELVIS WITHOUT CONTRAST REASON FOR EXAM: Female, 68 years old. Flank pain and diarrhea. Patient has a history of kidney stones. RADIATION DOSAGE (If Supplied By Facility): CTDIvol = ( 7.64 ) mGy, DLP = ( 377.73 ) mGycm TECHNIQUE: Transaxial images were obtained from the dome of the diaphragm to the symphysis pubis without oral contrast, and without intravenous contrast. Sagittal and coronal images were reconstructed. Individualized dose optimization techniques were used for this CT. COMPARISON: Comparison is made with prior study dated May 08, 2019. FINDINGS: The visualized lung bases are unremarkable. The visualized portions of the heart are within normal limits. Normal liver. There are surgical clips in the gallbladder fossa consistent with a prior cholecystectomy. Normal spleen. Normal pancreas. Normal bilateral adrenal glands. A right-sided double-J stent catheter is seen with the proximal tip in the superior pole calyx and the distal tip in the right side of the urinary bladder. There is a 2.6 cm x 6.2 cm crescentic hyper intensity in the mid inferior posterior aspect of the right kidney. This is suggestive of a small right perinephric hematoma. Stable 1.4 cm calculus in the lower pole calyx of the right kidney. Stable atrophy of the left kidney. There is evidence of left-sided hydronephrosis and proximal left hydroureter due to a large staghorn calculus. This is unchanged. Normal visualized stomach. Normal small intestine. Normal colon. The appendix is visualized and appears normal. There is diffuse atherosclerotic calcification of the abdominal aorta and the major visceral branches, without a demonstrated aneurysm. Normal inferior vena cava. Normal retroperitoneum. Normal urinary bladder. Calcified fibroid uterus. Normal abdominal wall. There are diffuse degenerative changes of the visualized lumbar spine. Levoscoliosis. CT/Abdomen/Pelvis without Cont IMPRESSION: Right perinephric hematoma. Right double-J stent catheter. Stable calculus in the lower pole calyx of the right kidney. Left hydronephrosis and left renal atrophy. Stable appearance of the left staghorn calculus. Electronically Signed: Remigio Lowery, at 11:19 EST , Service support ,
[2019-06-26 10:05] LABS: Bacteria 1+ /hpf (None Seen); Red Blood Cells-Urine > 100 SEEN /hpf (0-5); Squamous Epithelial Cells - UA 0-5 SEEN /hpf (5-10); White Blood Cells 10-25 SEEN /hpf (0-5)
[2019-06-26 10:51] VITALS: BP 124/77; PULSE 68; RESP 15; O2SAT 98
--- NOTE | 2019-06-26 12:14 | CON.PCM_ITS ---
Problem List (1) Kidney stone Status: Chronic - Consult Date of Consult: 06/26/19 - Reason for Consult ER consult 68-year-old female who has a history of multiple stones she has essentially a nonworking left kidney with multiple stones which we did not t reat. She does have multiple stones in the right kidney which was treated with a stent and 2 shockwave lithotripsies she is then had persistent nausea and vomiting and dry heaving and presented to the emergency room with an elevated creatinine above her baseline. CAT scan was done that demonstrated a subcapsular hematoma below the kidney at the small hematoma. She comes in with a very high creatinine probably multifactorial probably related to dehydration, diarrhea, she could have some renal dysfunction from the shockwave lithotripsy. On KUB and CAT scan there is no more residual stones no other treatments can be necessary but she does have the stent the stent is in good position she will need to be admitted to the hospital for further care regarding elevated creatinine she has multiple medical problems I recommend she go to the medical service.
[2019-06-26 12:23] VITALS: BP 139/84; PULSE 76; RESP 16; O2SAT 97
[2019-06-26 13:09] VITALS: BP 136/54; PULSE 81; RESP 18; TEMP 36.9; O2SAT 100; BMI 26.9
--- NOTE | 2019-06-26 13:46 | NURSING ---
pt had 1st lithotripsy about a month ago and had 2nd lithotripsy on Sunday- stent was placed and remains at this time.
[2019-06-26] MEDS: Heparin Injection (Vial) 5,000 UNIT/ML VIAL 5000 UNIT SC ×2 (13:53→21:59)
--- NOTE | 2019-06-26 14:38 | HP.PCM_ITS ---
History of Present Illness Date of Admission: 06/26/19 Chief Complaint: Nausea/vomiting/diarrhea/abdominal cramping The patient is a 68 year old F with PMH as below who presents after having about a month long history of nausea and intermittent vomiting as well as about 24 hours of diarrhea. She woke up today and was having significant abdominal cramping around the time when she would need to have a bowel movement. She presented to the hospital where she was found to have acute renal failure, and she had a recent lithotripsy and stent placed on the right. She has been having difficulty with kidney stones for the last several months. She has been afebrile without a leukocytosis however a UA done in the ER shows a possible UTI though the fact that she had instrumentation about a week ago with stent that is currently in place could lead to these findings. Past Medical History Past Medical History (Chronic Problems): Chronic Problems Kidney stone (Chronic) Alzheimer disease (Chronic) HTN (hypertension) (Chronic) HLD (hyperlipidemia) (Chronic) Depression (Chronic) GERD (gastroesophageal reflux disease) (Chronic) Diabetes (Chronic) Allergies amoxicillin [From Augmentin] Adverse Reaction (Verified 06/17/19 11:12) Hives cephalexin [From Keflex] Adverse Reaction (Verified 06/17/19 11:12) Vomiting clavulanic acid [From Augmentin] Adverse Reaction (Verified 06/17/19 11:12) Hives latex Adverse Reaction (Verified 06/20/19 10:01) Rash Penicillins Adverse Reaction (Verified 06/17/19 11:12) Vomiting shellfish derived Adverse Reaction (Verified 06/17/19 11:12) Vomiting Home Medications: Ambulatory Orders Medication Instructions Recorded Clonidine HCl [Catapres] 0.1 mg PO TID 05/08/19 Donepezil HCl 10 mg PO QHS 05/08/19 Eplerenone 50 mg PO DAILY 05/08/19 Famotidine 20 mg PO DAILY PRN PRN 05/08/19 Fenofibrate [Tricor] 145 mg PO DAILY 05/08/19 Losartan Potassium 100 mg PO DAILY 05/08/19 Metformin HCl 500 mg PO DAILY 05/08/19 Multivit with Iron,Minerals 1 tab PO DAILY 05/08/19 [Complete Senior] Sertraline HCl [Zoloft] 25 mg PO DAILY 05/08/19 proMETHazine tablet [Phenergan 12.5 mg PO Q6H PRN PRN 05/08/19 tablet] Hydrochlorothiazide [Hctz] 25 mg PO DAILY #30 tab 05/10/19 Surgical History: cholecystectomy [employer] TE[employer]ER History: No pertinent [employer] TE[employer]ER history Smoking Status: Never smoker Tobacco Use: Non-smoker Alcohol: None Drugs: None - *Family History Maternal History Items: Diabetes, Heart Disease Paternal History Items: Diabetes, Heart Disease Review of Systems Constitutional: Denies: Chills, Fever, Weight Change HEENT: Denies: Head Aches, Sinus Congestion, Sinus Drainage Cardiovascular: Denies: Chest Pain, Palpitations Respiratory: Denies: Cough, Shortness of breath at rest, Sputum production Gastrointestinal: Reports: Abdominal Pain, Diarrhea, Nausea, Vomiting. Denies: Hematochezia, Melena Genitourinary: Denies: Dysuria Musculoskeletal: Denies: Joint Pain, Joint Tenderness Skin: Denies: Rash, Wounds Neurological: Denies: Numbness, Tingling, Focal weakness Psychiatric: Denies: Anxiety, Depression Hematologic/ Lymphatic: Denies: Easy Bruising, Easy Bleeding VTE Information - Inpt Only VTE Present on Admission: No Patient Problems: Active and Suspected Problems Acute kidney injury (Acute) Perinephric hematoma (Acute) - Physical Exam Vitals/I&O's: Vital Signs Temp Pulse Resp BP Pulse Ox 98.4 F 81 18 136/54 H 100 06/26/19 13:09 06/26/19 13:09 06/26/19 13:09 06/26/19 13:09 06/26/19 13:09 Oxygen Delivery Method Room Air Weight: 156 lb 15.506 oz Body Mass Index (BMI) 26.9 General: Alert, Oriented x3, Cooperative, No apparent distress HEENT: Atraumatic, PERRLA, EOMI, Normocephalic Oral: Dry Mucosa Neck: Supple, No JVD Lungs: Clear to auscultation, Normal air movement, No rhonchi, No wheeze, No rales, Diminished Cardiovascular: Regular rate, Regular Rhythm, Normal S1, Normal S2, No murmurs Abdomen: Soft, Non Tender, Non-Distended, No Hepato-splenomegaly Extremities: No edema, Capillary Refill Less than 3 Seconds Skin: No rashes, No breakdown Neurological: Neuro grossly intact, Sensory exam intact to light touch and pain Psych/Mental Status: Normal Affect, Appropriate Laboratory Results 06/26/19 09:07: WBC 10.2, RBC 3.79 L, Hgb 10.9 L, Hct 32.8 L, MCV 86.5, MCH 28.8, MCHC 33.2, RDW Std Deviation 41.1, RDW Coeff of Naa 13.1, Plt Count 257, MPV 9.5, Immature Gran % (Auto) 0.500, Neut % (Auto) 69.3, Lymph % (Auto) 18.5 L , [place] % (Auto) 9.7, Eos % (Auto) 1.6, Baso % (Auto) 0.4, Absolute Neuts (auto) 7.0, Absolute Lymphs (auto) 1.88, Nucleated RBC % 0 06/26/19 09:07: Sodium 140, Potassium 3.7, Chloride 103, Carbon Dioxide 26.0, Anion Gap 11, BUN 61 H, Creatinine 4.32 H, Estim Creat Clear Calc 10.91, Est GFR (MDRD) Af Amer 13 L, Est GFR (MDRD) Non-Af 11 L, BUN/Creatinine Ratio 14.1, Glucose 92, Calcium 9.6 06/26/19 09:32: Urine Color Yellow, Urine Clarity Cloudy, Urine pH 6.0, Ur Specific [place] 1.015, Urine Protein 100 H, Urine Glucose (UA) Normal, Urine Ketones 5 H, Urine Occult Blood 250 H, Urine Nitrite Negative, Urine Bilirubin Negative, Urine Urobilinogen Normal, Ur Leukocyte Esterase 500 H, Urine RBC > 100 SEEN, Urine WBC 10-25 SEEN, Ur Squamous Epith Cells 0-5 SEEN, Urine Bacteria 1+, Urine Mucus 0 SEEN Current Medications Dextrose (D50w Syringe) 0 gm IV X1 PRN; Protocol PRN Reason: Hypoglycemia Glucagon () 1 mg IM .X1 PRN PRN Reason: Hypoglycemia Heparin Sodium (Porcine) (Heparin Na) 5,000 unit SC Q8 [facility] Last Admin: 06/26/19 13:53 Dose: 5,000 unit Documented by: Sodium Chloride () 1,000 mls @ 150 mls/hr IV .[id number] [facility] Last Admin: 06/26/19 09:05 Dose: 150 mls/hr Documented by: Sodium Chloride () 250 mls @ 15 mls/hr IV .[id number] PRN PRN Reason: Saline Flush Ciprofloxacin (Cipro) 400 mg in 200 mls @ 200 mls/hr IV Q24 [facility] Influenza Virus Vaccine Quadrival (Flucelvax /Fluzone [id number]) 0.5 ml IM .ONCE ONE Stop: 06/27/19 10:01 Insulin Human Lispro (Humalog Kwikpen (Bkc)) 0 unit SC ACHS [facility]; Protocol Ondansetron HCl (Zofran) 4 mg IV Q8H PRN PRN PRN Reason: NAUSEA/VOMITING Sodium Chloride () 10 - 40 ml IV UD PRN PRN Reason: SALINE FLUSH Assessment/Plan All Active Problems Acute kidney injury (Acute) Perinephric hematoma (Acute) 1. recent lithotripsies and stent placement for right-sided nephrolithiasis/left atrophic kidney/acute renal failure/possible UTI -Unsure what her baseline creatinine is, however on admission she is 4.3 and previously she was in the 1.3-1.4 range -Continue with IV fluids -Consult to urology, she was taken to the OR last week for lithotripsy and stent placement -CT scan with right perinephric hematoma but no more nephrolithiasis on the right -Urine culture pending, will start on Cipro daily given her renal function 2. DM 2 -We will hold her metformin and start a sliding scale insulin -Accu-Cheks AC at bedtime 3. Alzheimer's dementia and depression -Continue with her Aricept dosing -Depression is stable -continue with Zoloft 4. HTN/HLD -Blood pressures appear to be stable -Continue with fenofibrate but will hold her blood pressure medications given her acute renal failure 5. GERD -Stable -Continue with Pepcid DVT: Heparin Code Visit Inpatient E&M: 20209 Init Hosp L3
[2019-06-26 16:45] VITALS: BP 136/57; PULSE 85; RESP 18; TEMP 36.3; O2SAT 98
[2019-06-26] MEDS: Ciprofloxacin 400 MG/200 ML BAG 200 MG IV (17:18)
[2019-06-26 17:21] LABS: Bedside Glucose 85 mg/dL (70-110)
[2019-06-26 20:23] VITALS: BP 145/84; PULSE 76; RESP 16; TEMP 36.8; O2SAT 99
[2019-06-26] MEDS: cloNIDine HCl 0.1 MG Tablet PO (21:59)
[2019-06-26] MEDS: Donepezil HCl 10 MG Tablet PO (22:00)
[2019-06-26 22:31] LABS: Bedside Glucose 120 mg/dL (70-110)
[2019-06-27] MEDS: Acetaminophen 325 MG Tablet 650 MG PO ×2 (00:15→05:36)
[2019-06-27 02:15] VITALS: BP 136/57; PULSE 68; RESP 16; TEMP 36.8; O2SAT 99
[2019-06-27] MEDS: 0.9% Normal Saline 1,000 ML 150 ML IV ×2 (04:18→10:21)
[2019-06-27] MEDS: Heparin Injection (Vial) 5,000 UNIT/ML VIAL 5000 UNIT SC ×3 (05:36→21:17)
[2019-06-27] MEDS: Famotidine 20 MG Tablet PO (05:36)
[2019-06-27] MEDS: cloNIDine HCl 0.1 MG Tablet PO ×3 (05:36→21:20)
[2019-06-27 06:03] LABS: Absolute Lymphocyte Count 1.64 X10^3/uL (0.83-4.51); Absolute Neutrophil Count 5.8 X10^3/uL (2.0-7.7); Basophil# 0.03 X10^3/uL; Basophil% 0.4 % (0-1); Eosinophils% 2.4 % (0-5); Hematocrit 32.4 % (37-47); Hemoglobin 10.6 g/dL (12.0-15.0); Lymphocyte # 1.64 X10^3/ul (4.0); Lymphocyte % 19.4 % (19-41); Mean Corp Hgb Conc 32.7 g/dL (32-36); Mean Corpuscular Hgb 28.6 pg (27.0-32.0); Mean Corpuscular Volume 87.3 fL (81-99); Mean Platelet Vol. 9.3 fl (6.2-12.0); Monocyte% 9.4 % (0-10); NRBC Flagged by Analyzer 0 % (0-5); Neutrophil # 5.77 X10^3/uL (2.7-7.7); Platelet Count 292 K/mm3 (150-450); RBC Distribution Width CV 13.1 % (11.6-14.6); RBC Distribution Width SD 41.6 fl (35.1-43.9); Red Blood Count 3.71 M/mm3 (4.2-5.4); White Blood Count 8.5 K/mm3 (4.4-11.0)
[2019-06-27 06:28] LABS: Anion Gap 8 (5-15); BUN 47 mg/dL (7-18); BUN/Creat Ratio 14.9 RATIO (10-20); Calcium,Total 9.1 mg/dL (8.5-10.1); Chloride 108 mmol/L (98-107); Creatinine, Serum 3.16 mg/dL (0.55-1.02); EST Glomerular Filtration Rate 16 mL/min (>60); Est Glom Filt Rate - Afr Amer 19 mL/min (>60); Estimated Creatinine Clearance 14.92 ml/min; Glucose 110 mg/dL (74-106); Potassium 3.8 mmol/L (3.5-5.1); Sodium Level 141 mmol/L (136-145)
[2019-06-27] MEDS: Insulin Lispro 100 UNIT/ML INSULN.PEN SC ×2 (06:33→12:51)
[2019-06-27 06:46] LABS: Bedside Glucose 156 mg/dL (70-110)
[2019-06-27 07:49] VITALS: BP 120/61; PULSE 68; RESP 16; TEMP 36.6; O2SAT 98
[2019-06-27] MEDS: Sertraline 50 MG Tablet 25 MG PO (08:48)
[2019-06-27] MEDS: Ondansetron 4 MG/2 ML Vial IV (10:27)
--- NOTE | 2019-06-27 10:44 | PN_ITS ---
Patient Problems: Active and Suspected Problems Acute kidney injury (Acute) Perinephric hematoma (Acute) Subjective: Doing well, feels much better today. Vitals/I&O's: Vital Signs Temp Pulse Resp BP Pulse Ox 97.8 F 68 16 120/61 98 06/27/19 07:49 06/27/19 07:49 06/27/19 07:49 06/27/19 07:49 06/27/19 07:49 Oxygen Delivery Method Room Air Weight: 156 lb 15.506 oz Body Mass Index (BMI) 26.9 Intake and Output for Last 24 Hours 06/25/19 06/26/19 06/27/19 23:59 23:59 23:59 Intake Total 2347.5 / 2347.5 1952.5 / 1952.5 Output Total 550 / 550 400 / 400 Balance 1797.5 / 1797.5 1552.5 / 1552.5 General: Alert, Oriented x3, Cooperative, No apparent distress HEENT: Atraumatic, PERRLA, EOMI, Normocephalic Oral: Moist mucosa Neck: Supple, No JVD Lungs: Clear to auscultation, Normal air movement, No rhonchi, No wheeze, No rales, Diminished Cardiovascular: Regular rate, Regular Rhythm, Normal S1, Normal S2, No murmurs Abdomen: Soft, Non Tender, Non-Distended, No Hepato-splenomegaly Extremities: No edema, Capillary Refill Less than 3 Seconds Skin: No rashes, No breakdown Neurological: Neuro grossly intact, Sensory exam intact to light touch and pain Psych/Mental Status: Normal Affect, Appropriate Laboratory Results 06/26/19 16:40: POC Glucose 85 06/26/19 22:04: POC Glucose 120 H 06/27/19 05:50: Sodium 141, Potassium 3.8, Chloride 108 H, Carbon Dioxide 25.0, Anion Gap 8, BUN 47 H, Creatinine 3.16 H, Estim Creat Clear Calc 14.92, Est GFR (MDRD) Af Amer 19 L, Est GFR (MDRD) Non-Af 16 L, BUN/Creatinine Ratio 14.9, Glucose 110 H, Calcium 9.1 06/27/19 05:50: WBC 8.5, RBC 3.71 L, Hgb 10.6 L, Hct 32.4 L, MCV 87.3, MCH 28.6, MCHC 32.7, RDW Std Deviation 41.6, RDW Coeff of Naa 13.1, Plt Count 292, MPV 9.3, Immature Gran % (Auto) 0.400, Neut % (Auto) 68.0, Lymph % (Auto) 19.4, [place] % (Auto) 9.4, Eos % (Auto) 2.4, Baso % (Auto) 0.4, Absolute Neuts (auto) 5.8, Absolute Lymphs (auto) 1.64, Nucleated RBC % 0 06/27/19 06:29: POC Glucose 156 H Current Medications Acetaminophen (Tylenol) 650 mg PO Q4H PRN PRN PRN Reason: Pain Score 1-1010 Last Admin: 06/27/19 05:36 Dose: 650 mg Documented by: Clonidine (Catapres) 0.1 mg PO TID [facility] Last Admin: 06/27/19 05:36 Dose: 0.1 mg Documented by: Dextrose (D50w Syringe) 0 gm IV X1 PRN; Protocol PRN Reason: Hypoglycemia Donepezil HCl (Aricept) 10 mg PO QHS [facility] Last Admin: 06/26/19 22:00 Dose: 10 mg Documented by: Famotidine (Pepcid) 20 mg PO DAILY PRN PRN PRN Reason: acid reflux Last Admin: 06/27/19 05:36 Dose: 20 mg Documented by: Glucagon () 1 mg IM .X1 PRN PRN Reason: Hypoglycemia Heparin Sodium (Porcine) (Heparin Na) 5,000 unit SC Q8 [facility] Last Admin: 06/27/19 05:36 Dose: 5,000 unit Documented by: Sodium Chloride () 1,000 mls @ 150 mls/hr IV .Q6H40M [facility] Last Admin: 06/27/19 10:21 Dose: 150 mls/hr Documented by: Sodium Chloride () 250 mls @ 15 mls/hr IV .[id number] PRN PRN Reason: Saline Flush Ciprofloxacin (Cipro) 400 mg in 200 mls @ 200 mls/hr IV Q24H [facility] Last Infusion: 06/26/19 18:18 Dose: Infused Documented by: Insulin Human Lispro (Humalog Kwikpen (Bkc)) 0 unit SC ACHS [facility]; Protocol Last Admin: 06/27/19 06:33 Dose: 2 units Documented by: Ondansetron HCl (Zofran) 4 mg IV Q8H PRN PRN PRN Reason: NAUSEA/VOMITING Last Admin: 06/27/19 10:27 Dose: 4 mg Documented by: Sertraline HCl (Zoloft) 25 mg PO DAILY [facility] Last Admin: 06/27/19 08:48 Dose: 25 mg Documented by: Sodium Chloride () 10 - 40 ml IV UD PRN PRN Reason: SALINE FLUSH STROKE Vital Signs/Narrative: Vital Signs Temp Pulse Resp BP Pulse Ox 06/27/19 07:49 97.8 F 68 16 120/61 98 Medical Necessity - Tobacco Use Smoking Status: Never smoker Tobacco Use: Non-smoker Assessment/Plan All Active Problems Acute kidney injury (Acute) Perinephric hematoma (Acute) 1. recent lithotripsies and stent placement for right-sided nephrolithiasis/left atrophic kidney/acute renal failure/possible UTI -Unsure what her baseline creatinine is, however on admission she is 4.3 and previously she was in the 1.3-1.4 range -Improved to 3.16 -Continue with IV fluids -Consult to urology, she was taken to the OR last week for lithotripsy and stent placement -CT scan with right perinephric hematoma but no more nephrolithiasis on the right -Urine culture pending, will start on Cipro daily given her renal function 2. DM 2 -We will hold her metformin and start a sliding scale insulin -Accu-Cheks AC at bedtime 3. Alzheimer's dementia and depression -Continue with her Aricept dosing -Depression is stable -continue with Zoloft 4. HTN/HLD -Blood pressures appear to be stable -Continue with fenofibrate but will hold her blood pressure medications given her acute renal failure 5. GERD -Stable -Continue with Pepcid DVT: Heparin Code Visit Inpatient E&M: 61340 Subs Hosp L2
[2019-06-27 11:31] LABS: Bedside Glucose 168 mg/dL (70-110)
--- NOTE | 2019-06-27 12:29 | CASEMGMT ---
Addendum entered by Lele Santamaria 06/27/19 14:43: EDWARD YEUNG introduced role to patient's sisterMary who came to visit. Reviewed PT/OT notes re: no therapy recommended. Sister feels able to have pt return home with family support. No dc concerns noted otherwise. Obi MAI Original Note: RN ANJANA Assessment Presentation: Intro role of CM and purpose of RN CM assessment with pt. Pt not able to participate at this time. Call to sister who answered phone, stated she was on her way to hospital and would like to see how here sister is doing prior to discussion. EDWARD YEUNG let her know I would try to speak with her when she comes to hospital. PCP: Dr. Sofia Pitts Specialists: Dr. James, Alzheimer specialist Preferred [facility]acy: [facility] Insurance: [facility] [employer] Prescription Benefit: yes LNOK: Sister Marcie Clark Living Arrangements: Lives with sister and niece in 2 story home, first floor setup. Per PT/OT notes, pt has had at least one fall. Supervised bathing, dressing. Famly completes home management tasks. Transportation: sister drives DME: [employer] HHC: none Patient DC goals: Home DC PLAN: Home on dc. PT/OT notes reviewed. Therapy after dc not recommended. Will plan on return home with her family. Obi MAI
[2019-06-27 12:59] VITALS: BP 130/62; PULSE 72; RESP 18; TEMP 36.8; O2SAT 98
[2019-06-27 15:46] VITALS: BP 133/52; PULSE 68; PULSE 90; RESP 18; TEMP 37.1; O2SAT 97
[2019-06-27] MEDS: Ciprofloxacin 400 MG/200 ML BAG 150 MG IV (16:28)
[2019-06-27 16:36] LABS: Bedside Glucose 93 mg/dL (70-110)
[2019-06-27] MEDS: 0.9% Normal Saline 1,000 ML 100 ML IV (18:37)
[2019-06-27 19:59] VITALS: BP 124/61; PULSE 67; RESP 14; TEMP 37.1; O2SAT 97
[2019-06-27] MEDS: Donepezil HCl 10 MG Tablet PO (21:18)
[2019-06-27 21:31] LABS: Bedside Glucose 87 mg/dL (70-110)
[2019-06-28 02:30] VITALS: BP 125/56; PULSE 64; RESP 16; TEMP 36.3; O2SAT 96
[2019-06-28 02:40] LABS: Bedside Glucose 92 mg/dL (70-110)
[2019-06-28] MEDS: 0.9% Normal Saline 1,000 ML 100 ML IV ×2 (03:44→13:20)
[2019-06-28] MEDS: Heparin Injection (Vial) 5,000 UNIT/ML VIAL 5000 UNIT SC ×3 (06:28→22:23)
[2019-06-28] MEDS: cloNIDine HCl 0.1 MG Tablet PO ×3 (06:30→22:24)
[2019-06-28 06:51] LABS: Bedside Glucose 107 mg/dL (70-110)
[2019-06-28 07:15] LABS: Anion Gap 7 (5-15); BUN 32 mg/dL (7-18); BUN/Creat Ratio 14.3 RATIO (10-20); Calcium,Total 8.7 mg/dL (8.5-10.1); Chloride 114 mmol/L (98-107); Creatinine, Serum 2.24 mg/dL (0.55-1.02); EST Glomerular Filtration Rate 23 mL/min (>60); Est Glom Filt Rate - Afr Amer 28 mL/min (>60); Estimated Creatinine Clearance 21.04 ml/min; Glucose 113 mg/dL (74-106); Potassium 3.8 mmol/L (3.5-5.1); Sodium Level 142 mmol/L (136-145)
[2019-06-28 08:30] VITALS: BP 129/58; PULSE 79; RESP 16; TEMP 36.9; O2SAT 94
--- NOTE | 2019-06-28 09:06 | PCM.PN.HOSP ---
Patient Problems: Active and Suspected Problems Acute kidney injury (Acute) Perinephric hematoma (Acute) Subjective: Looking better and feeling better, no issues overnight. She is sitting at the edge of the bed eating breakfast today Vitals/I&O's: Vital Signs Temp Pulse Resp BP Pulse Ox 98.4 F 79 16 129/58 H 94 06/28/19 08:30 06/28/19 08:30 06/28/19 08:30 06/28/19 08:30 06/28/19 08:30 Oxygen Delivery Method Room Air Weight: 156 lb 15.506 oz Body Mass Index (BMI) 26.9 Intake and Output for Last 24 Hours 06/26/19 06/27/19 06/28/19 23:59 23:59 23:59 Intake Total 2347.5 / 2347.5 3598.34 / 3798.34 885 / 885 Output Total 550 / 550 1100 / 1550 850 / 850 Balance 1797.5 / 1797.5 2498.34 / 2248.34 35 / 35 General: Alert, Cooperative, No apparent distress HEENT: Atraumatic, PERRLA, EOMI, Normocephalic Oral: Moist Mucosa Neck: Supple, No JVD Lungs: Clear to auscultation, Normal air movement, No rhonchi, No wheeze, No rales Cardiovascular: Regular rate, Regular Rhythm, Normal S1, Normal S2, No murmurs Abdomen: Soft, Non Tender, Non-Distended, No Hepato-splenomegaly Extremities: No edema, Capillary Refill Less than 3 Seconds Skin: No rashes, No breakdown Neurological: Neuro grossly intact, Sensory exam intact to light touch and pain Psych/Mental Status: Normal Affect, Appropriate Laboratory Results 06/27/19 11:21: POC Glucose 168 H 06/27/19 16:24: POC Glucose 93 06/27/19 21:25: POC Glucose 87 06/28/19 02:35: POC Glucose 92 06/28/19 06:19: Sodium 142, Potassium 3.8, Chloride 114 H, Carbon Dioxide 21.0, Anion Gap 7, BUN 32 H, Creatinine 2.24 H, Estim Creat Clear Calc 21.04, Est GFR (MDRD) Af Amer 28 L, Est GFR (MDRD) Non-Af 23 L, BUN/Creatinine Ratio 14.3, Glucose 113 H, Calcium 8.7 06/28/19 06:35: POC Glucose 107 Current Medications Acetaminophen (Tylenol) 650 mg PO Q4H PRN PRN PRN Reason: Pain Score 1-10 Last Admin: 06/27/19 05:36 Dose: 650 mg Documented by: Clonidine (Catapres) 0.1 mg PO TID [facility] Last Admin: 06/28/19 06:30 Dose: 0.1 mg Documented by: Dextrose (D50w Syringe) 0 gm IV X1 PRN; Protocol PRN Reason: Hypoglycemia Donepezil HCl (Aricept) 10 mg PO QHS [facility] Last Admin: 06/27/19 21:18 Dose: 10 mg Documented by: Famotidine (Pepcid) 20 mg PO DAILY PRN PRN PRN Reason: acid reflux Last Admin: 06/27/19 05:36 Dose: 20 mg Documented by: Glucagon () 1 mg IM .X1 PRN PRN Reason: Hypoglycemia Heparin Sodium (Porcine) (Heparin Na) 5,000 unit SC Q8 [facility] Last Admin: 06/28/19 06:28 Dose: 5,000 unit Documented by: Sodium Chloride () 1,000 mls @ 100 mls/hr IV .Q10H [facility] Last Admin: 06/28/19 03:44 Dose: 100 mls/hr Documented by: Sodium Chloride () 250 mls @ 15 mls/hr IV .[id number] PRN PRN Reason: Saline Flush Ciprofloxacin (Cipro) 400 mg in 200 mls @ 200 mls/hr IV Q24H [facility] Last Infusion: 06/27/19 17:50 Dose: Infused Documented by: Insulin Human Lispro (Humalog Kwikpen (Bkc)) 0 unit SC ACHS [facility]; Protocol Last Admin: 06/28/19 06:35 Dose: Not Given Documented by: Ondansetron HCl (Zofran) 4 mg IV Q8H PRN PRN PRN Reason: NAUSEA/VOMITING Last Admin: 06/27/19 10:27 Dose: 4 mg Documented by: Sertraline HCl (Zoloft) 25 mg PO DAILY [facility] Last Admin: 06/27/19 08:48 Dose: 25 mg Documented by: Sodium Chloride () 10 - 40 ml IV UD PRN PRN Reason: SALINE FLUSH STROKE Vital Signs/Narrative: Vital Signs Temp Pulse Resp BP Pulse Ox 06/28/19 08:30 98.4 F 79 16 129/58 H 94 Medical Necessity - Tobacco Use Smoking Status: Never smoker Tobacco Use: Non-smoker Assessment/Plan All Active Problems Acute kidney injury (Acute) Perinephric hematoma (Acute) 1. recent lithotripsies and stent placement for right-sided nephrolithiasis/left atrophic kidney/acute renal failure/possible UTI -Unsure what her baseline creatinine is, however on admission she is 4.3 and previously she was in the 1.3-1.4 range -Improved to 2.24 -Continue with IV fluids -Consult to urology, she was taken to the OR last week for lithotripsy and stent placement -CT scan with right perinephric hematoma but no more nephrolithiasis on the right -Urine culture pending, will continue with Cipro daily given her renal function -She became tearful today because she was discussing the fact that her sister feels that she cannot take care of herself and that she needs to be into an assisted living since she has early dementia. She states that she has difficulty knowing how to do laundry because she forgets how the washing machines work. Will discuss with social work about placement options if necessary. 2. DM 2 -We will hold her metformin and start a sliding scale insulin -Accu-Cheks AC at bedtime 3. Alzheimer's dementia and depression -Continue with her Aricept dosing -Depression is stable -continue with Zoloft, but will increase from 25-50 4. HTN/HLD -Blood pressures appear to be stable -Continue with fenofibrate but will hold her blood pressure medications given her acute renal failure 5. GERD -Stable -Continue with Pepcid DVT: Heparin Code Visit Inpatient E&M: 13492 Subs Hosp L2
[2019-06-28] MEDS: Sertraline 50 MG Tablet PO (09:38)
[2019-06-28 11:55] LABS: Bedside Glucose 126 mg/dL (70-110)
[2019-06-28] MEDS: Ondansetron 4 MG/2 ML Vial IV (13:20)
[2019-06-28] MEDS: 0.9% Saline Lock 10 ML Syringe IV (13:26)
[2019-06-28 14:30] VITALS: BP 157/72; PULSE 74; RESP 14; TEMP 36.9; O2SAT 98
[2019-06-28 15:51] LABS: Bedside Glucose 92 mg/dL (70-110)
[2019-06-28] MEDS: Ciprofloxacin 400 MG/200 ML BAG 150 MG IV (18:11)
[2019-06-28 20:30] VITALS: BP 129/78; PULSE 71; RESP 16; TEMP 36.9; O2SAT 97
[2019-06-28 21:16] LABS: Bedside Glucose 106 mg/dL (70-110)
[2019-06-28] MEDS: Donepezil HCl 10 MG Tablet PO (22:23)
[2019-06-29] MEDS: 0.9% Normal Saline 1,000 ML 100 ML IV ×2 (00:40→09:51)
[2019-06-29 02:30] VITALS: BP 138/66; PULSE 75; RESP 16; TEMP 36.8; O2SAT 98
[2019-06-29] MEDS: cloNIDine HCl 0.1 MG Tablet PO (06:08)
[2019-06-29] MEDS: Insulin Lispro 100 UNIT/ML INSULN.PEN SC (06:09)
[2019-06-29] MEDS: Heparin Injection (Vial) 5,000 UNIT/ML VIAL 5000 UNIT SC (06:09)
[2019-06-29 06:50] LABS: Anion Gap 8 (5-15); BUN 22 mg/dL (7-18); BUN/Creat Ratio 12.4 RATIO (10-20); Calcium,Total 8.8 mg/dL (8.5-10.1); Chloride 115 mmol/L (98-107); Creatinine, Serum 1.77 mg/dL (0.55-1.02); EST Glomerular Filtration Rate 30 mL/min (>60); Est Glom Filt Rate - Afr Amer 37 mL/min (>60); Estimated Creatinine Clearance 26.63 ml/min; Glucose 163 mg/dL (74-106); Potassium 3.8 mmol/L (3.5-5.1); Sodium Level 144 mmol/L (136-145)
[2019-06-29 06:55] LABS: Bedside Glucose 155 mg/dL (70-110)
--- NOTE | 2019-06-29 09:43 | PN_ITS ---
Patient Problems: Active and Suspected Problems Acute kidney injury (Acute) Perinephric hematoma (Acute) Subjective: Says that she is feeling better, however she maintains that her sister feels like she would do better in assisted living or group home. She does not want to go but she does readily admit that she does not do laundry because she forgets how to work the machine given her dementia. Vitals/I&O's: Vital Signs Temp Pulse Resp BP Pulse Ox 98.2 F 75 16 138/66 H 98 06/29/19 02:30 06/29/19 02:30 06/29/19 02:30 06/29/19 02:30 06/29/19 02:30 Oxygen Delivery Method Room Air Weight: 156 lb 15.506 oz Body Mass Index (BMI) 26.9 Intake and Output for Last 24 Hours 06/27/19 06/28/19 06/29/19 23:59 23:59 23:59 Intake Total 3598.34 / 3798.34 2933.33 / 3173.33 1001.67 / 1001.67 Output Total 1100 / 1550 1400 / 1700 900 / 900 Balance 2498.34 / 2248.34 1533.33 / 1473.33 101.67 / 101.67 General: Alert, Cooperative, No apparent distress HEENT: Atraumatic, PERRLA, EOMI, Normocephalic Oral: Moist Mucosa Neck: Supple, No JVD Lungs: Clear to auscultation, Normal air movement, No rhonchi, No wheeze, No rales Cardiovascular: Regular rate, Regular Rhythm, Normal S1, Normal S2, No murmurs Abdomen: Soft, Non Tender, Non-Distended, No Hepato-splenomegaly Extremities: No edema, Capillary Refill Less than 3 Seconds Skin: No rashes, No breakdown Neurological: Neuro grossly intact, Sensory exam intact to light touch and pain Psych/Mental Status: Normal Affect, Appropriate Microbiology Past 72 Hours 06/26/19 09:32 Urine, Random Urine Culture - Final Pseudomonas aeroginosa Laboratory Results 06/28/19 11:44: POC Glucose 126 H 06/28/19 15:43: POC Glucose 92 06/28/19 21:08: POC Glucose 106 06/29/19 05:21: Sodium 144, Potassium 3.8, Chloride 115 H, Carbon Dioxide 21.0, Anion Gap 8, BUN 22 H, Creatinine 1.77 H, Estim Creat Clear Calc 26.63, Est GFR (MDRD) Af Amer 37 L, Est GFR (MDRD) Non-Af 30 L, BUN/Creatinine Ratio 12.4, Glucose 163 H, Calcium 8.8 06/29/19 06:02: POC Glucose 155 H Current Medications Acetaminophen (Tylenol) 650 mg PO Q4H PRN PRN PRN Reason: Pain Score 1-10/10 Last Admin: 06/27/19 05:36 Dose: 650 mg Documented by: Clonidine (Catapres) 0.1 mg PO TID [facility] Last Admin: 06/29/19 06:08 Dose: 0.1 mg Documented by: Dextrose (D50w Syringe) 0 gm IV X1 PRN; Protocol PRN Reason: Hypoglycemia Donepezil HCl (Aricept) 10 mg PO QHS [facility] Last Admin: 06/28/19 22:23 Dose: 10 mg Documented by: Famotidine (Pepcid) 20 mg PO DAILY PRN PRN PRN Reason: acid reflux Last Admin: 06/27/19 05:36 Dose: 20 mg Documented by: Glucagon () 1 mg IM .X1 PRN PRN Reason: Hypoglycemia Heparin Sodium (Porcine) (Heparin Na) 5,000 unit SC Q8 [facility] Last Admin: 06/29/19 06:09 Dose: 5,000 unit Documented by: Sodium Chloride () 1,000 mls @ 100 mls/hr IV .Q10H [facility] Last Admin: 06/29/19 00:40 Dose: 100 mls/hr Documented by: Sodium Chloride () 250 mls @ 15 mls/hr IV .[id number] PRN PRN Reason: Saline Flush Ciprofloxacin (Cipro) 400 mg in 200 mls @ 200 mls/hr IV Q24H [facility] Last Infusion: 06/28/19 19:31 Dose: Infused Documented by: Insulin Human Lispro (Humalog Kwikpen (Bkc)) 0 unit SC ACHS [facility]; Protocol Last Admin: 06/29/19 06:09 Dose: 2 units Documented by: Ondansetron HCl (Zofran) 4 mg IV Q8H PRN PRN PRN Reason: NAUSEA/VOMITING Last Admin: 06/28/19 13:20 Dose: 4 mg Documented by: Sertraline HCl (Zoloft) 50 mg PO DAILY [facility] Last Admin: 06/28/19 09:38 Dose: 50 mg Documented by: Sodium Chloride () 10 - 40 ml IV UD PRN PRN Reason: SALINE FLUSH Last Admin: 06/28/19 13:26 Dose: 10 ml Documented by: Medical Necessity - Tobacco Use Smoking Status: Never smoker Tobacco Use: Non-smoker Assessment/Plan All Active Problems Acute kidney injury (Acute) Perinephric hematoma (Acute) 1. recent lithotripsies and stent placement for right-sided nephrolithiasis/left atrophic kidney/acute renal failure/possible UTI -Unsure what her baseline creatinine is, however on admission she is 4.3 and previously she was in the 1.3-1.4 range -Improved to 1.77 -Continue with IV fluids -Consult to urology, she was taken to the OR last week for lithotripsy and stent placement -CT scan with right perinephric hematoma but no more nephrolithiasis on the right -Urine culture with 1000-10,000 CFU of Pseudomonas aeruginosa sensitive to Cipro, she is received 3 doses -Attempted to reach the sister but was unable to get through, unsure as to what the plans going forward if we need to set up her group home or home health. We will attempt to contact the sister again. 2. DM 2 -We will hold her metformin and start a sliding scale insulin -Accu-Cheks AC at bedtime 3. Alzheimer's dementia and depression -Continue with her Aricept dosing -Depression is stable -continue with Zoloft at 50 4. HTN/HLD -Blood pressures appear to be stable -Continue with fenofibrate but will hold her blood pressure medications given her acute renal failure 5. GERD -Stable -Continue with Pepcid DVT: Heparin Code Visit Inpatient E&M: 49621 Subs Hosp L2
[2019-06-29] MEDS: Sertraline 50 MG Tablet PO (09:51)
[2019-06-29 09:58] VITALS: BP 119/65; PULSE 74; RESP 16; TEMP 36.3; O2SAT 97
--- NOTE | 2019-06-29 11:11 | NURSING ---
ATTEMPTED TO CONTACT SISTER ELSA, LEFT SHORT MSG REQUESTING SHE RETURNED CALL
--- NOTE | 2019-06-29 11:19 | NURSING ---
SPOKE WITH PTS NIECE, ISMA. THEIR PLAN IS TO TAKE PT HOME AT THIS TIME AND ATLEAST SEE HOW SHE DOES OVER THE HOLIDAYS. COMMUNICATION SENT TO DR PELAEZ
--- NOTE | 2019-06-29 11:34 | PCM.DC ---
- Discharge Diagnoses Current Active Problems: Current Active and Chronic Problems Acute kidney injury (Acute) Perinephric hematoma (Acute) You will use the following diet at home:: Calorie/Carbohydrate Controlled (specify 1200, 1400, etc) Your food should be the consistency of: Regular Your liquids should be the consistency of: Regular/Thin Discharge Activity: Return to Normal Activity Call your doctor if you observe: Fever of 101 or Higher, Shortness of breath, Dizziness, Fainting spells, Swelling in the ankles, Chest pain, Increased palpitations (irregular heartbeat) Additional Instructions: Obtain a BMP by your PCP to evaluate your kidney function. Continue to have good fluid intake Allergies/Adverse Reactions: Allergies amoxicillin [From Augmentin] Adverse Reaction (Verified 06/17/19 11:12) Hives cephalexin [From Keflex] Adverse Reaction (Verified 06/17/19 11:12) Vomiting clavulanic acid [From Augmentin] Adverse Reaction (Verified 06/17/19 11:12) Hives latex Adverse Reaction (Verified 06/20/19 10:01) Rash Penicillins Adverse Reaction (Verified 06/17/19 11:12) Vomiting shellfish derived Adverse Reaction (Verified 06/17/19 11:12) Vomiting Medications to take at Discharge Clonidine HCl [Catapres] 0.1 mg PO TID 05/08/19 Donepezil HCl 10 mg PO QHS 05/08/19 Famotidine 20 mg PO DAILY PRN PRN 05/08/19 Fenofibrate [Tricor] 145 mg PO DAILY 05/08/19 Multivit with Iron,Minerals [Complete Senior] 1 tab PO DAILY 05/08/19 proMETHazine tablet [Phenergan tablet] 12.5 mg PO Q6H PRN PRN 05/08/19 Ciprofloxacin [Cipro] 500 mg PO DAILY #2 tab 06/29/19 Eplerenone 50 mg PO DAILY #0 06/29/19 Hydrochlorothiazide [Hctz] 25 mg PO DAILY #30 tab 06/29/19 Losartan Potassium 100 mg PO DAILY #0 06/29/19 Metformin HCl 500 mg PO DAILY #0 06/29/19 Sertraline HCl [Zoloft] 50 mg PO DAILY tab 06/29/19 The following prescriptions were given: Ciprofloxacin [Cipro] 500 mg PO DAILY #2 tab Transmission Status: Pending to [facility] [place] [facility] Primary Care Physician: Sofia Pitts DO [Primary Care Provider] - Please follow up with your Primary Care Physician in: 3-5 days Test Results: Test results from this visit will be discussed in further detail at your follow-up appointment, if applicable.
--- NOTE | 2019-06-29 11:36 | PCM.DC.SUM ---
Discharge Date and Diagnosis - Problem List Patient Problems: Active and Suspected Problems Acute kidney injury (Acute) Perinephric hematoma (Acute) Date of Admission: 06/26/19 Date of Discharge: 06/29/19 - Primary Discharge Diagnosis Active and Suspected Problems Acute kidney injury (Acute) Perinephric hematoma (Acute) - Secondary Discharge Diagnosis Chronic Problems Kidney stone (Chronic) Alzheimer disease (Chronic) HTN (hypertension) (Chronic) HLD (hyperlipidemia) (Chronic) Depression (Chronic) GERD (gastroesophageal reflux disease) (Chronic) Diabetes (Chronic) Hospital Course and Treatment Imaging Results: CT Abd/Pelvis: IMPRESSION: Right perinephric hematoma. Right double-J stent catheter. Stable calculus in the lower pole calyx of the right kidney. Left hydronephrosis and left renal atrophy. Stable appearance of the left staghorn calculus. Consults: Urology Operations: - - Cystoscopy, right retrograde pyelogram, right stent placement, left retrograde pyelogram, attempted left ureteral stent placement which was unsuccessful-05/08/2019 Procedures: None Summary of Care Provided: Per HPI: The patient is a 68 year old F with PMH as below who presents after having about a month long history of nausea and intermittent vomiting as well as about 24 hours of diarrhea. She woke up today and was having significant abdominal cramping around the time when she would need to have a bowel movement. She presented to the hospital where she was found to have acute renal failure, and she had a recent lithotripsy and stent placed on the right. She has been having difficulty with kidney stones for the last several months. She has been afebrile without a leukocytosis however a UA done in the ER shows a possible UTI though the fact that she had instrumentation about a week ago with stent that is currently in place could lead to these findings. Hospital Course: 1. Recent lithotripsy and stent placement for right-sided nephrolithiasis/left atrophic kidney/acute renal failure/possible [id number]-old female with dementia presented with intermittent vomiting and nausea, but was found to be in acute renal failure with a creatinine of 4.3, her previous creatinines were in the 1.3-1.4 range. She was started on IV fluids and on the day of discharge improved to 1.77. There was a little bit of a disposition issue as she had stated that her sister wanted her to go to an assisted living or jail facility, however her social work note it was stated that the sister was okay with her coming home. We were able to get in touch with the niece today who felt that they would be able to take care of her at home. Therefore she will be discharged home with 2 more days of Cipro, she did have a UA concerning for UTI which could likely be secondary to the stent she has placed in her right ureter, however she also did grow 1000-10,000 CFU of Pseudomonas aeruginosa therefore she was given Cipro to complete a 5-day course. At this time I do recommend that she hold all of her blood pressure medication as well as her metformin pending a repeat BMP by her PCP this week to evaluate renal function. As long as her creatinine normalizes she can restart her home medications. I did continue to encourage good p.o. intake. 2. Alzheimer's dementia/depression-she seemed to be a little bit sad and flat during this admission, and I increased her Zoloft from 25mg to 50 mg, and will see if this has any improvement in her depression. Otherwise she can continue her Aricept. 3. Her other medical diagnoses were evaluated and her home medications were continued where appropriate Patient Problems: Active and Suspected Problems Acute kidney injury (Acute) Perinephric hematoma (Acute) - Physical Exam Vitals/I&O's: Vital Signs Temp Pulse Resp BP Pulse Ox 97.4 F L 74 16 119/65 97 06/29/19 09:58 06/29/19 09:58 06/29/19 09:58 06/29/19 09:58 06/29/19 09:58 Oxygen Delivery Method Room Air Weight: 156 lb 15.506 oz Body Mass Index (BMI) 26.9 Intake and Output for Last 24 Hours 06/27/19 06/28/19 06/29/19 23:59 23:59 23:59 Intake Total 3598.34 / 3798.34 2933.33 / 3173.33 1920.00 / 1920.00 Output Total 1100 / 1550 1400 / 1700 900 / 900 Balance 2498.34 / 2248.34 1533.33 / 1473.33 1020.00 / 1020.00 Microbiology Past 72 Hours 06/26/19 09:32 Urine, Random Urine Culture - Final Pseudomonas aeroginosa Laboratory Results 06/28/19 11:44: POC Glucose 126 H 06/28/19 15:43: POC Glucose 92 06/28/19 21:08: POC Glucose 106 06/29/19 05:21: Sodium 144, Potassium 3.8, Chloride 115 H, Carbon Dioxide 21.0, Anion Gap 8, BUN 22 H, Creatinine 1.77 H, Estim Creat Clear Calc 26.63, Est GFR (MDRD) Af Amer 37 L, Est GFR (MDRD) Non-Af 30 L, BUN/Creatinine Ratio 12.4, Glucose 163 H, Calcium 8.8 06/29/19 06:02: POC Glucose 155 H Current Medications Acetaminophen (Tylenol) 650 mg PO Q4H PRN PRN PRN Reason: Pain Score 1-1010 Last Admin: 06/27/19 05:36 Dose: 650 mg Documented by: Clonidine (Catapres) 0.1 mg PO TID [facility] Last Admin: 06/29/19 06:08 Dose: 0.1 mg Documented by: Dextrose (D50w Syringe) 0 gm IV X1 PRN; Protocol PRN Reason: Hypoglycemia Donepezil HCl (Aricept) 10 mg PO QHS [facility] Last Admin: 06/28/19 22:23 Dose: 10 mg Documented by: Famotidine (Pepcid) 20 mg PO DAILY PRN PRN PRN Reason: acid reflux Last Admin: 06/27/19 05:36 Dose: 20 mg Documented by: Glucagon () 1 mg IM .X1 PRN PRN Reason: Hypoglycemia Heparin Sodium (Porcine) (Heparin Na) 5,000 unit SC Q8 [facility] Last Admin: 06/29/19 06:09 Dose: 5,000 unit Documented by: Sodium Chloride () 1,000 mls @ 100 mls/hr IV .Q10H [facility] Last Admin: 06/29/19 09:51 Dose: 100 mls/hr Documented by: Sodium Chloride () 250 mls @ 15 mls/hr IV .[id number] PRN PRN Reason: Saline Flush Ciprofloxacin (Cipro) 400 mg in 200 mls @ 200 mls/hr IV Q24H [facility] Last Infusion: 06/28/19 19:31 Dose: Infused Documented by: Insulin Human Lispro (Humalog Kwikpen (Bkc)) 0 unit SC ACHS [facility]; Protocol Last Admin: 06/29/19 06:09 Dose: 2 units Documented by: Ondansetron HCl (Zofran) 4 mg IV Q8H PRN PRN PRN Reason: NAUSEA/VOMITING Last Admin: 06/28/19 13:20 Dose: 4 mg Documented by: Sertraline HCl (Zoloft) 50 mg PO DAILY [facility] Last Admin: 06/29/19 09:51 Dose: 50 mg Documented by: Sodium Chloride () 10 - 40 ml IV UD PRN PRN Reason: SALINE FLUSH Last Admin: 06/28/19 13:26 Dose: 10 ml Documented by: Discharge Activity: Return to Normal Activity Call your doctor if you observe: Fever of 101 or Higher, Shortness of breath, Dizziness, Fainting spells, Swelling in the ankles, Chest pain, Increased palpitations (irregular heartbeat) Home Medications: Medications to take at Discharge Clonidine HCl [Catapres] 0.1 mg PO TID 05/08/19 Donepezil HCl 10 mg PO QHS 05/08/19 Famotidine 20 mg PO DAILY PRN PRN 05/08/19 Fenofibrate [Tricor] 145 mg PO DAILY 05/08/19 Multivit with Iron,Minerals [Complete Senior] 1 tab PO DAILY 05/08/19 proMETHazine tablet [Phenergan tablet] 12.5 mg PO Q6H PRN PRN 05/08/19 Ciprofloxacin [Cipro] 500 mg PO DAILY #2 tab 06/29/19 Eplerenone 50 mg PO DAILY #0 06/29/19 Hydrochlorothiazide [Hctz] 25 mg PO DAILY #30 tab 06/29/19 Losartan Potassium 100 mg PO DAILY #0 06/29/19 Metformin HCl 500 mg PO DAILY #0 06/29/19 Sertraline HCl [Zoloft] 50 mg PO DAILY tab 06/29/19 Following Prescrptions Were Given to Patient: Ciprofloxacin [Cipro] 500 mg PO DAILY #2 tab Transmission Status: Pending to [facility] [place] [facility] Primary Care Physician: Sofia Pitts DO [Primary Care Provider] - Please follow up with your Primary Care Physician in: 3-5 days Please Follow Up With: Erik Ramirez MD When: 1-2 weeks or as previously scheduled Disposition: Home Minutes spent on discharge:: 35 Patient Condition:: Stable Medical Necessity - Tobacco Use Smoking Status: Never smoker Tobacco Use: Non-smoker Meaningful Use Info Meaningful Use Diagnoses (Choose all that apply): None applicable Code Visit Inpatient E&M: 79405 Disch Hosp
[2019-06-29 14:11] LABS: Bedside Glucose 111 mg/dL (70-110)
== END 2019-06-29 12:28 | disposition home or self-care (01) | DRG 684 ==
LOC: ED 11:49 → MS3 12:36
PROVIDERS: Admitting Provider Family Medicine; Emergency Provider Emergency Medicine; Family Provider Family Medicine; PCP Family Medicine; Referring Provider Family Medicine; Visit Provider Family Medicine
DX: N17.9 Acute kidney failure, unspecified (principal); E11.9 Type 2 diabetes mellitus without complications; I10 Essential (primary) hypertension; F02.80 Dementia in other diseases classified elsewhere, unspecified severity, without behavioral disturbance, psychotic disturbance, mood disturbance, and anxiety; G30.9 Alzheimer's disease, unspecified; Z23 Encounter for immunization; Z79.84 Long term (current) use of oral hypoglycemic drugs; E78.5 Hyperlipidemia, unspecified; K21.9 Gastro-esophageal reflux disease without esophagitis; F32.9 Major depressive disorder, single episode, unspecified; N20.0 Calculus of kidney; N28.89 Other specified disorders of kidney and ureter
CPT/HCPCS: 36415; 74176; 80048; 81001; 82962; 85025; 87077; 87086; 87088; 87186; 97110; 97161; 97166; 97530; 99284; G0008; J7030; 90686; A4216; J0744; J2405

== ENCOUNTER → 2019-08-14 13:53 | Outpatient (CLI) | payer MEDICARE, OTHER, SELFPAY ==
[2019-06-26 13:09] VITALS: BMI 26.9
[2019-08-14 15:03] LABS: Anion Gap 6 (5-15); BUN 32 mg/dL (7-18); Calcium,Total 9.4 mg/dL (8.5-10.1); Chloride 104 mmol/L (98-107); EST Glomerular Filtration Rate 34 mL/min (>60); Est Glom Filt Rate - Afr Amer 41 mL/min (>60); Glucose 178 mg/dL (74-106); Potassium 3.5 mmol/L (3.5-5.1); Sodium Level 139 mmol/L (136-145)
== END ==
PROVIDERS: Family Provider Family Medicine; PCP Family Medicine; Referring Provider Urology; Visit Provider Urology
DX: N20.0 Calculus of kidney (principal)
CPT/HCPCS: 36415; 80048